=== PATIENT | male | born 1960 | race Caucasian/White ===

== ENCOUNTER 2020-12-17 15:11 | Inpatient (IN) | payer MEDICAID, SELFPAY ==
[2020-12-17 15:29] VITALS: BP 137/87; PULSE 18; RESP 91; TEMP 36.5; O2SAT 99; BMI 18.9
[2020-12-17] MEDS: Tamsulosin HCl 0.4 MG Capsule PO (17:29)
[2020-12-17] MEDS: Carbidopa/Levodopa 25/100 Tablet PO ×2 (17:31→18:37)
[2020-12-17 17:50] VITALS: O2SAT 99
[2020-12-17 20:35] VITALS: BP 130/70; PULSE 88; RESP 18; TEMP 36.5; O2SAT 100
[2020-12-17] MEDS: Senna/Docusate Sodium 1 Tablet PO (20:42)
[2020-12-17] MEDS: Pramipexole Di-HCl 1 MG Tablet 1.5 MG PO (20:43)
[2020-12-17] MEDS: rifAMPin 300 MG Capsule PO (20:43)
[2020-12-17] MEDS: Famotidine 20 MG Tablet PO (20:43)
[2020-12-17] MEDS: AMANTADINE HCL 50 MG/5ML 100 MG PO (20:44)
[2020-12-17] MEDS: MELATONIN 3 MG TABLET PO (20:44)
[2020-12-17] MEDS: Amitriptyline 100 MG Tablet 200 MG PO (20:45)
[2020-12-18] MEDS: Carbidopa/Levodopa 25/100 Tablet PO ×8 (04:16→18:22)
[2020-12-18] MEDS: 0.9% Saline Lock 10 ML Syringe IV ×2 (06:10→10:23)
[2020-12-18] MEDS: Enoxaparin 40 MG/0.4 ML Syringe SC (06:20)
[2020-12-18 06:58] LABS: Hematocrit 36.3 % (40-54); Hemoglobin 11.4 g/dL (13.0-16.5); Mean Corp Hgb Conc 31.4 g/dL (32-36); Mean Corpuscular Hgb 27.7 pg (27.0-32.0); Mean Corpuscular Volume 88.3 fL (80-94); Mean Platelet Vol. 8.6 fl (6.2-12.0); Platelet Count 363 K/mm3 (150-450); RBC Distribution Width SD 51.9 fl (35.1-43.9); Red Blood Count 4.11 M/mm3 (4.6-6.2); White Blood Count 5.7 K/mm3 (4.4-11.0)
[2020-12-18 07:27] LABS: ALB/GLOB Ratio 0.6 RATIO (0.9-2.4); AST(SGOT) 14 U/L (15-37); Alanine Aminotransfer ALT/SGPT 8 U/L (16-61); Albumin, Serum 2.9 g/dL (3.2-5.0); Alkaline Phosphatase 90 U/L (45-117); Anion Gap 5 (5-15); BUN 10 mg/dL (7-18); BUN/Creat Ratio 14.4 RATIO (10-20); Calcium,Total 9.3 mg/dL (8.5-10.1); Chloride 100 mmol/L (98-107); EST Glomerular Filtration Rate 124 mL/min (>60); Est Glom Filt Rate - Afr Amer 150 mL/min (>60); Estimated Creatinine Clearance 92.09 ml/min; Glucose 91 mg/dL (74-106); Magnesium 2.1 mg/dL (1.6-2.6); Potassium 3.9 mmol/L (3.5-5.1); Protein, Total 7.9 g/dL (6.4-8.2); Sodium Level 134 mmol/L (136-145)
[2020-12-18 07:35] VITALS: BP 140/80; PULSE 85; RESP 16; TEMP 36.3; O2SAT 97
[2020-12-18] MEDS: AMANTADINE HCL 50 MG/5ML 100 MG PO ×2 (08:08→17:18)
[2020-12-18] MEDS: Famotidine 20 MG Tablet PO ×2 (08:09→20:42)
[2020-12-18] MEDS: rifAMPin 300 MG Capsule PO ×2 (08:09→20:45)
[2020-12-18] MEDS: Ferrous Sulfate 325 MG Tablet PO (08:09)
[2020-12-18] MEDS: Cholecalciferol (VIT D3) 25 MCG TABLET (1,000 UNITS) PO (08:09)
[2020-12-18] MEDS: Senna/Docusate Sodium 1 Tablet PO ×2 (08:10→20:42)
[2020-12-18 09:17] VITALS: O2SAT 99
--- NOTE | 2020-12-18 12:17 | PCM.HP.STD ---
[facility] - General General Date of Admission: 12/17/20 Date of Service: 12/18/20 Chief Complaint: Debility secondary to Parkinson's disease and recent sepsis secondary to MRSA. [facility] Narrative SOFIE MILLER, is a 60 YO M with a PMH of Parkinson's disease, anxiety/depression, GERD, osteoarthritis, hx of placement of a deep brain stimulator and R total shoulder replacement who was transferred to [facility] on 10/03/20 from an OSH for severe sepsis with metabolic encephalopathy secondary to periprosthetic infection of the R shoulder. Apparently he was found down in his home and also had ARF and rhabdomyolysis. Cultures were + for MRSA. The hardware was removed and a antibiotic spacer was placed. Work-up at that admission also showed an abscess anterior to the Left SI joint and bilateral sacral insufficiency fractures. Aspiration of the abscess was attempted but, failed. DANO during that admission showed no significant valvular abnormalities and no vegetations. The EF was estimated at 71%. Bilateral lower extremity venous duplex on 823 was negative for acute deep or superficial venous thrombosis. Bilateral upper extremity venous duplex, also on 10/09/2020, showed acute superficial vein thrombosis noted in the left cephalic vein. There was no evidence of acute deep or superficial venous thrombosis in the veins of the right upper extremity. He was transferred to [facility] for IV antibiotics including Daptomycin and Ceftaroline. On 11/02/20 he was sent back to the ED at [facility] with a c/o increasing back pain. A CT scan of the lumbar spine with contrast demonstrated erosive destruction of the endplates of L3-4, L4-5 and L5-S1. Additionally there appeared to be erosion involving the left sacral ala and the left ilium adjacent to the SI joint. There was a focal fluid collection along the anterior left margin of L5 highly suggestive of a perivertebral abscess. He underwent irrigation/washout, excisional debridement of the L5 kamlesh-vertebral abscess and L3-S1 posterior segmental pedicle screw-ken instrumentation, pelvic instrumentation and bilateral S2A1 pelvic screws on 11/06/2020. He was transferred back to [facility]. At the time of presentation he was unable to walk. He was evaluated by PT/OT and a recommendation for acute inpt rehab was made. He lives by himself and is single. He was transferred to [facility] acute inpatient rehab on 12/17/20 for 3 hours of therapy daily to restore function at or near his level of function prior to sepsis. [facility] Medical History (Updated 12/20/20 @ 10:[address] Lia Hernandez DO) Abscess Anxiety Brain neurostimulator device in situ Depression GERD (gastroesophageal reflux disease) Osteoarthritis Parkinson's disease Home Medications acetaminophen 1,000 mg PO Q6H PRN 12/17/20 [History Last Taken Unknown] amantadine HCl 100 mg PO BID 12/17/20 [History Last Taken Unknown] amitriptyline 200 mg PO DAILY@1700 12/17/20 [History Last Taken Unknown] carbidopa-levodopa 0.5 tab PO 4-12XD 12/17/20 [History Last Taken Unknown] cholecalciferol (vitamin D3) [Vitamin D3] 25 mcg PO DAILY 12/17/20 [History Last Taken Unknown] daptomycin 500 mg IV DAILY@0600 12/17/20 [History Last Taken Unknown] enoxaparin [Lovenox] 40 mg SUBCUT DAILY@0600 12/17/20 [History Last Taken Unknown] famotidine 20 mg PO BID 12/17/20 [History Last Taken Unknown] ferrous sulfate 325 mg PO DAILY 12/17/20 [History Last Taken Unknown] hydrocodone-homatropine 1 tab PO Q4H PRN 12/17/20 [History Last Taken Unknown] ipratropium-albuterol [DuoNeb] 3 ml INHALATION Q4H PRN 12/17/20 [History Last Taken Unknown] melatonin 3 mg PO QHS 12/17/20 [History Last Taken Unknown] ondansetron [Zofran ODT] 4 mg PO Q8H PRN 12/17/20 [History Last Taken Unknown] polyethylene glycol 3350 [Miralax] 17 g PO DAILY 12/17/20 [History Last Taken Unknown] rifampin 300 mg PO BID 12/17/20 [History Last Taken Unknown] ropinirole 6 mg PO QHS 12/17/20 [History Last Taken Unknown] sennosides-docusate sodium [Senna-S] 1 tab-cap PO BID 12/17/20 [History Last Taken Unknown] tamsulosin 0.4 mg PO DAILY@1700 12/17/20 [History Last Taken Unknown] Allergy/AdvReac Type Severity Reaction Status Date / Time No Known Allergies Allergy Verified 12/17/20 16:18 Family History (Updated 12/17/20 @ 17:47 by Zoie Overton) Mother CVA (cerebral vascular accident) Sister Parkinson disease Father Heart failure Surgical History (Updated 12/18/20 @ 16:[address] 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 Lia Hernandez DO) household members: other details: lives alone in a private home with stairs to the basement and the bedroom. number of children: 0 current occupational status: disabled Smoking Status: Never smoker alcohol intake: current details: he drinks about 12 beers and a few shots a YEAR substance use type: does not use ROS Constitutional Constitutional: Reports body ache(s), change in weight, fatigue and weight loss Eyes Eyes: Reports systems reviewed and no addt'l complaints, except as documented ENT HEENT: Reports post nasal drip and rhinorrhea; Denies dizziness, dysphagia, hearing loss or sore throat Cardiovascular Cardiovascular: Denies abdominal pain, chest pain, chest pain at rest, chest pain with activity or clubbing Respiratory/Chest Respiratory/Chest: Reports dry cough; Denies excessive phlegm production, hoarseness, shortness of breath at rest or shortness of breath with exertion Gastrointestinal Gastrointestinal: Denies abdominal pain, anorexia, bloating, chewing difficulty, constipation, diarrhea or dyspepsia Genitourinary Genitourinary: Denies burning urination, change in urinary stream or dysuria Musculoskeletal Musculoskeletal: Reports arthralgias, back pain, difficulty walking and muscle weakness Integumentary Integumentary: Reports other Details: incisions from recent surgeries. ; Denies jaundice Neurologic Neurologic: Reports abnormal gait, tremor(s) and other Details: has Parkinson's ; Denies abnormal speech, behavior changes, confusion, convulsions or dizziness Psychiatric Psychiatric: Reports anxiety, depression and other Details: has been tearful recently. Has been in and out of hospital and LTAC for past 2+ months ; Denies auditory hallucinations, behavioral changes, cognitive impairment, confusion, hallucinations, suicidal thoughts or visual hallucinations Endocrine Endocrinology: Reports systems reviewed and no addt'l complaints, except as documented Hematologic/Lymphatic Hematologic/Lymphatic: Reports systems reviewed and no addt'l complaints, except as documented Allergic/Immunologic Allergic/Immunologic: Reports rhinitis Vital Signs Vital Signs Vital Signs: 12/17/20 15:29 12/17/20 17:50 12/17/20 20:35 Temperature 97.7 F L 97.7 F L Temperature Source Temporal Oral Pulse Rate 18 L 88 Pulse Strength Respiratory Rate 91 H 18 Respiratory Effort Respiratory Depth Respiratory Pattern Blood Pressure 137/87 H 130/70 H Blood Pressure Mean 103 90 Blood Pressure Source Monitor Monitor Blood Pressure Position Semi-Fowlers Blood Pressure Location Right Arm Pulse Ox 99 99 100 Oxygen Delivery Method Room Air Room Air Room Air 12/17/20 21:07 12/17/20 21:54 12/18/20 07:35 Temperature 97.4 F L Temperature Source Oral Pulse Rate 85 Pulse Strength Normal (2+) Respiratory Rate 16 Respiratory Effort Normal Non-Labored Respiratory Depth Normal Respiratory Pattern Normal Blood Pressure 140/80 H Blood Pressure Mean 100 Blood Pressure Source Monitor Blood Pressure Position Semi-Fowlers Blood Pressure Location Right Arm Pulse Ox 97 Oxygen Delivery Method Room Air Room Air 12/18/20 09:17 Temperature Temperature Source Pulse Rate Pulse Strength Respiratory Rate Respiratory Effort Respiratory Depth Respiratory Pattern Blood Pressure Blood Pressure Mean Blood Pressure Source Blood Pressure Position Blood Pressure Location Pulse Ox 99 Oxygen Delivery Method Room Air Weight Weight: 124 lb 12.506 oz Body Mass Index (BMI) 18.9 Physical Exam Const alert, oriented x3 and no apparent distress General Appearance: cooperative, well kempt, frail and well hydrated HEENT normocephalic HEENT Narrative: He has deformities of skull due to the implantation of neurostimulator for Parkinson's disease Head and Scalp: atraumatic; Negative for temporal artery tenderness Face and Sinus: face symmetric Eyes PERRL, EOMs intact bilaterally, conjunctivae normal and no scleral icterus Neck No nuchal rigidity, supple, no JVD and no carotid bruits General: normal visual inspection and trachea midline Chest Chest: symmetrical chest wall rise Resp Resp Narrative: Decreased resp effort but, the lungs are CTA without wheezes, rhonchi or rales. Effort and Inspection: able to speak in complete sentences Cardio regular rate, regular rhythm, S1 normal heart sound, S2 normal heart sound, no murmurs, no rub and no gallops Cardio Narrative: No ectopy GI normal to inspection, nondistended, normoactive bowel sounds, soft to palpation and non-tender Extremity normal capillary refill, no clubbing, cyanosis or edema, no calf tenderness and no pedal edema Skin Rashes: no rashes Hair: general thinning Neuro oriented x3, CN's II-XII intact bilaterally, no focal motor deficits and no sensory deficits noted Neuro Narrative: generalized weakness. He has tremors and some rigidity due to Parkinson's disease. Speech: Negative for expressive aphasia or receptive aphasia Psych mental status grossly normal, thought process normal, cooperative, speech normal, denies hallucinations, denies homicidal ideation and denies suicidal ideation Appearance: grossly normal Attitude: calm Activity / Motor Behavior: appropriate eye contact; Negative for psychomotor agitation or psychomotor slowing Mood & Affect: depressed and tearful Attention / Concentration: attention grossly intact Memory / Cognition: memory grossly intact Results Lab / Micro Data Result Diagrams: 12/18/20 06:43 12/18/20 06:43 Labs: Laboratory Results - last 24 hr 12/18/20 06:43: WBC 5.7, RBC 4.11 L, Hgb 11.4 L, Hct 36.3 L, MCV 88.3, MCH 27.7, MCHC 31.4 L, RDW Std Deviation 51.9 H, RDW Coeff of [place] 16.0 H, Plt Count 363, MPV 8.6 12/18/20 06:43: Sodium 134 L, Potassium 3.9, Chloride 100, Carbon Dioxide 29.0, Anion Gap 5, BUN 10, Creatinine 0.70, Estim Creat Clear Calc 92.09, Est GFR (MDRD) Af Amer 150, Est GFR (MDRD) Non-Af 124, BUN/Creatinine Ratio 14.4, Glucose 91, Calcium 9.3, Phosphorus 4.0, Magnesium 2.1, Total Bilirubin 0.30, AST 14 L, ALT 8 L, Alkaline Phosphatase 90, Total Protein 7.9, Albumin 2.9 L, Globulin 5.0 H, Albumin/Globulin Ratio 0.6 L Assessment & Plan Assessment/Plan (1) Physical debility: (2) Severe sepsis: (3) Osteomyelitis: (4) Abscess: (5) Discitis: (6) Parkinson's disease: (7) Depression: (8) Anxiety: (9) BPH (benign prostatic hyperplasia): (10) GERD (gastroesophageal reflux disease): (11) Sacral insufficiency fracture: (12) Anemia: (13) Hyponatremia: (14) Brain neurostimulator device in situ: (15) Restless legs: (16) 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 He is sleeping well at night. He is already thin and frail in appearance so will avoid Wellbutrin. Consider Remeron but, would like to observe for a few days prior to initiating a new drug. GI prophylaxis with Famotidine DVT prophylaxis with Enoxaparin Follow up with ID, PCP, neurology, neurosurgery following DC from IP Rehab He seems to have post nasal drip and will try Atrovent nasal spray for cough. He will also need an MBS. If he has any significant post void residuals will need to consider decreasing the dose of the Elavil. Charges/Coding Visit Charges Inpatient E&M: 77199 Init Hosp L3
--- NOTE | 2020-12-18 16:47 | REHABEVAL_ITS ---
Admission Information Primary Diagnosis:: Debility secondary to recent prolonged hospitalizations for MRSA sepsis with osteomyelitis, discitis, infected prosthetic joint, pelvic abscess, paravertebral abscess at L5 and surgeries. Pt also has Parkinson's and generalized weakness. Status Changes from Prescreening?: No changes Identified Actual Problem List:: Infection, Skin Intergrity, Pain, ALteration in Cmfrt, Depression, Alteration in Sleep, Alteration in Nutrition, Mobility Impaired, Self Care Deficit and Alteration-Leisure Activ. Potential Problem List:: DVT, Bleeding, Infection, UTI, Aspiration, Falls, Skin Integrity and Depression Risk of Complications DVT: LMWH and AQUILES Hose Bleeding: Monitor Lab Values, Nursing to Teach Precautions for anti-coagulation therapy., Wound, if applicable, to be assessed every shift. and Stroke patients assessed for lethargy or change in status. Infection: Clinical Staff to Monitor for S/S of infection: and S/S of infection include fever, redness, warmth, etc. Urinary Tract Infection: Monitor for frequency, burning, discomfort, or incontinence. and Nursing will obtain urine sample for urinalysis and C&S when ordered. Aspiration: Clinical staff will monitor for coughing, drooling, congestion., Speech will evaluate swallowing and dsyphasia. and Nursing will monitor patient swallowing during meals. Falls: Patient will be evaluated for Fall Precautions and Patient will be placed on Fall Precautions as indicated per protocol. Skin Breakdown: Nursing will assess skin daily using assessment tool. and Nursing will place on Skin Breakdown Precautions as indicated. Pain: Clinical staff will assess patient's pain level per protocol., Medications will be given, if needed, and the pain level reassessed. and Other methods: Massage, distraction, decrease stimulus, etc. used PRN. Plan of Care Patient requires physician specializing in physical medicine and rehab oversight to provide close medical supervision of rehab issues including: Pain Management, Sleep Problems, Bowel and Bladder, Medical and co-morbidity Management, DVT prophylaxis, Rehabilitation Leadership and Coordination of treatment team Patient needs Physical Therapy: For a minimum of 1 hour and At least 5 out of 7 days Patient needs Physical Therapy to improve:: Mobility, Strengthening, Transfers, Stretching, ROM, Endurance, Stairs, Gait and Balance Patient needs Occupational Therapy: For a minimum of 1 hour and At least 5 out of 7 days Patient needs Occupational Therapy to improve ADL's incl.: Eating, Grooming, Bathing, Dressing, Toileting, Toilet transfers, Community Reintegration, Higher functioning activities, Household tasks, Adaptive Equipment, Splinting and Other activities as determined Patient requires 24/7 Rehabilitation Nursing for: Pain Issues, Identifying and preventing risk factors, Monitoring and reporting current medical conditions, Assisting with ambulation, transfer, and all ADL's, Teaching patients about disease process and medications, Family teaching, Providing safe environment, Bowel and Bladder Issues, Skin integrity and Medication Management Patient needs Professor Of Floriculture/ Case Management for: Discharge Planning, Arranging Home Equipment or Services and Family Interventions Patient needs Dietary and Nutrition Services for: Adequate Nutrition, Nutritional Supplements and Nutritional Education Goals Patient will remain: free from falls and or injury at time of discharge. Patient will perform bed mobility at: MOD I level of assist. Patient will complete transfers from bed to chair at: MOD I level of assist. Patient will ambulate: with LRD and - (1000 feet with least restrictive device at standby assist on various surfaces) Patient will complete upper body dressing at: MOD I level of assist. Patient will complete lower body dressing at: MOD I level of assist. Patient will complete toileting at: MOD I level of assist. Patient will perform bathing at: MOD I level of assist. Patient will complete grooming at: MOD I level of assist. Patient will complete home management skills at: MOD I level of assist. Patient will achieve: - (1 curb step and 1+3 steps with no rails to simulate the entrance to his home. ) Patient will have pain level of: of 3 or less Patient's skin will: remain intact Patient will receive: adequate nutrition. Discharge Planning Pt Prognosis for Sig. Practical Improv. w/in Reasonable Time: Good Anticipated D/C Destination: Home Was Preadmission Assessment Accurate?: Yes
--- NOTE | 2020-12-18 16:52 | CHAPLAIN ---
Type of Pastoral Visit _x__ Initial Visit ___ Follow-up Visit ___ On-call Visit ___ General Patient Visit ___ Spiritual Assessment ___ Family Conference ___ Bereavement ___ Rapid Response ___ Code Blue ___ Other (describe below) Pastoral Care Referral From _x__ Patient ___ Family ___ Nurse ___ Physician ___ Production Ski Repairer ___ Hearing Officer ___ Other (describe below) Sacrament/Intervention _x__ Active listening ___ Anointing ___ Rastafari ___ Bereavement ___ Communion ___ Belkis exploration ___ _x__ Life review _x__ Prayer ___ Reconciliation ___ Sacrament of Sick _x__ Supportive presence ___ Wedding ___ Other (describe below) Pastoral Comments developing rapport as patient shows some interest in follow up; sister is with him in room; both give some background history of health and family; pt has long history with Parkinson's disease too; pt was raised in anglican but non attending at this time of life
[2020-12-18] MEDS: Tamsulosin HCl 0.4 MG Capsule PO (17:18)
[2020-12-18 20:09] VITALS: BP 135/85; PULSE 98; RESP 16; TEMP 36.6; O2SAT 98
[2020-12-18] MEDS: Pramipexole Di-HCl 1 MG Tablet 1.5 MG PO (20:42)
[2020-12-18] MEDS: MELATONIN 3 MG TABLET PO (20:42)
[2020-12-18] MEDS: Amitriptyline 100 MG Tablet 200 MG PO (20:42)
[2020-12-18] MEDS: Ipratropium Bromide 0.06% NASAL SPRAY 2 SPRAY NASAL (20:43)
[2020-12-19] MEDS: Carbidopa/Levodopa 25/100 Tablet PO ×8 (04:07→18:10)
[2020-12-19] MEDS: Acetaminophen 500 MG Tablet 1000 MG PO ×2 (04:12→10:17)
[2020-12-19] MEDS: Enoxaparin 40 MG/0.4 ML Syringe SC (06:03)
[2020-12-19] MEDS: AMANTADINE HCL 50 MG/5ML 100 MG PO ×2 (06:04→15:20)
[2020-12-19 07:30] VITALS: BP 128/77; PULSE 84; RESP 16; TEMP 36.8; O2SAT 98
[2020-12-19] MEDS: Ferrous Sulfate 325 MG Tablet PO (08:03)
[2020-12-19] MEDS: Famotidine 20 MG Tablet PO ×2 (08:04→20:16)
[2020-12-19] MEDS: Cholecalciferol (VIT D3) 25 MCG TABLET (1,000 UNITS) PO (08:04)
[2020-12-19] MEDS: Senna/Docusate Sodium 1 Tablet PO ×2 (08:04→20:15)
[2020-12-19] MEDS: Ipratropium Bromide 0.06% NASAL SPRAY 2 SPRAY NASAL ×2 (08:04→20:12)
[2020-12-19] MEDS: rifAMPin 300 MG Capsule PO (08:04)
--- NOTE | 2020-12-19 12:10 | NURSING ---
1200 [facility] not in med box, [facility]
[2020-12-19 13:55] VITALS: O2SAT 96
--- NOTE | 2020-12-19 14:15 | NURSING ---
1200 amantadine dose not yet sent from pharmacy, called pharmacy requesting missing dose to be sent up.
--- NOTE | 2020-12-19 15:31 | CASEMGMT ---
Social Work Met with patient for initial assessment. Discussed code status. Pt confirmed DNR-CCA, no intubation. Explained Shun RAMIREZ insurance with [employer] 12/22 and continued stay is not guaranteed. The goal is for pt to return home at [facility]. pt was completely independent prior, able to do steps. Sister to attend Team meetings. Received call from Shun Fischer CM, , whom inquired about DC plan and barriers. Provided that information. SW to continue to follow. Joya Patino, DIRECTOR SOCIAL NATURAL GAS TREATING UNIT OPERATOR
[2020-12-19] MEDS: Tamsulosin HCl 0.4 MG Capsule PO (18:09)
[2020-12-19] MEDS: MELATONIN 3 MG TABLET PO (20:13)
[2020-12-19] MEDS: Pramipexole Di-HCl 1 MG Tablet 1.5 MG PO (20:13)
[2020-12-19] MEDS: Amitriptyline 100 MG Tablet 200 MG PO (20:13)
[2020-12-19 21:50] VITALS: BP 113/69; PULSE 84; RESP 16; TEMP 36.8; O2SAT 98
[2020-12-20] MEDS: Carbidopa/Levodopa 25/100 Tablet PO ×8 (04:47→17:54)
[2020-12-20] MEDS: Enoxaparin 40 MG/0.4 ML Syringe SC (06:06)
[2020-12-20] MEDS: AMANTADINE HCL 50 MG/5ML 100 MG PO ×2 (06:08→12:10)
[2020-12-20 07:29] VITALS: BP 102/78; PULSE 97; RESP 18; TEMP 36.4; O2SAT 97
[2020-12-20] MEDS: Ipratropium Bromide 0.06% NASAL SPRAY 2 SPRAY NASAL ×3 (08:28→19:53)
[2020-12-20] MEDS: Ferrous Sulfate 325 MG Tablet PO (08:29)
[2020-12-20] MEDS: Cholecalciferol (VIT D3) 25 MCG TABLET (1,000 UNITS) PO (08:29)
[2020-12-20] MEDS: Senna/Docusate Sodium 1 Tablet PO ×2 (08:29→19:54)
[2020-12-20] MEDS: Famotidine 20 MG Tablet PO ×2 (08:29→19:54)
--- NOTE | 2020-12-20 10:53 | PN_ITS ---
Progress Note Afebrile VSS-blood pressure is lower than normal today at 102/78. He denies lightheadedness. Maintaining appropriate oxygen saturation on RA Oral intake is erratic. Yesterday intake was listed as only 480 on 12/19/20 Discussed with nursing - no problems that need addressed Reviewed the PT/OT notes Medication list reviewed. Eder tells me that the chronic coughing is a little better with the Atrovent however he still coughs occasionally. Not always associated with eating though. He denies chest pain, shortness of breath, lightheadedness, na usea/vomiting/abdominal pain, dysuria, ankle swelling, calf pain. Physical Exam Const alert, oriented x3 and no apparent distress General Appearance: cooperative HEENT HEENT Narrative: MM are moist and their are no buccal lesions or exudate. Eyes PERRL, EOMs intact bilaterally, conjunctivae normal and no scleral icterus Neck no lymphadenopathy General: trachea midline Resp Resp Narrative: Diminished air entry but CTA. Not tachypneic and no conversational dyspnea. Cardio regular rate, regular rhythm, no murmurs and no gallops GI normal to inspection, nondistended, normoactive bowel sounds, soft to palpation and non-tender Extremity no calf tenderness and no pedal edema Skin Rashes: no rashes Wound Narrative: incisions are clean, dry and intact without erythema or DC. Psych mental status grossly normal, thought process normal and cooperative Psych Narrative: not tearful today. Mood seems to be less depressed. He is making good eye contact and he is appropriate. 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 Encouraged him to increase his water intake. 2. continue to observe for depression and continue the Elavil. Will talk with his sister tomorrow on yaneth and Eder and discuss depression and determine if this is just situational and will resolve with improvement in ADL's/ambulation and return home. If I need to start another antidepressant will likely chose Remeron. 3. Increase Atrovent nasal spray to 3 times daily 4. Consult speech therapy for swallowing-Will need an MBS. Visit Charges Inpatient E&M: 82338 Subs Hosp L2
[2020-12-20] MEDS: Smz/Tmp Ds Tablet 2 TABLET PO (16:46)
[2020-12-20] MEDS: Tamsulosin HCl 0.4 MG Capsule PO (17:54)
[2020-12-20 19:30] VITALS: BP 125/77; PULSE 84; RESP 16; TEMP 36.3; O2SAT 100
[2020-12-20] MEDS: Amitriptyline 100 MG Tablet 200 MG PO (19:53)
[2020-12-20] MEDS: MELATONIN 3 MG TABLET PO (19:54)
[2020-12-20] MEDS: Pramipexole Di-HCl 1 MG Tablet 1.5 MG PO (21:56)
[2020-12-21] MEDS: Carbidopa/Levodopa 25/100 Tablet PO ×8 (04:04→18:12)
[2020-12-21] MEDS: AMANTADINE HCL 50 MG/5ML 100 MG PO ×2 (06:40→12:02)
[2020-12-21] MEDS: Enoxaparin 40 MG/0.4 ML Syringe SC (06:41)
[2020-12-21] MEDS: Ipratropium Bromide 0.06% NASAL SPRAY 2 SPRAY NASAL ×3 (06:41→20:56)
[2020-12-21 07:40] VITALS: BP 139/77; PULSE 85; RESP 16; TEMP 36.6; O2SAT 97
[2020-12-21] MEDS: Famotidine 20 MG Tablet PO ×2 (08:00→20:55)
[2020-12-21] MEDS: Senna/Docusate Sodium 1 Tablet PO ×3 (08:01→20:54)
[2020-12-21] MEDS: Ferrous Sulfate 325 MG Tablet PO (08:01)
[2020-12-21] MEDS: Smz/Tmp Ds Tablet 2 TABLET PO ×2 (08:01→16:19)
[2020-12-21] MEDS: Cholecalciferol (VIT D3) 25 MCG TABLET (1,000 UNITS) PO (08:01)
[2020-12-21] MEDS: Tamsulosin HCl 0.4 MG Capsule PO (16:19)
--- NOTE | 2020-12-21 16:29 | CASEMGMT ---
Social Work IDT met with patient and sister for Team meeting. Discussed patient's progress in therapy and nursing. Explained Shun ASHLEY insurance with [employer] 12/22 and continued stay is not guaranteed. The goal is for pt to return home alone. However, it is [place] old [place] two story house with many steep flights of steps. The sister is concerned with the current safety if he were to DC soon. ST is also following and recommending a MBS to better assess and intervene. SW to continue to follow. Will ReTeam next week. Joya Patino, FRUIT SPRAYER BOTTLE MACHINE OPERATOR
--- NOTE | 2020-12-21 16:48 | PCM.PN.BLA ---
Progress Note Eder was seen on team rounds today. His Sister Anna was present in the room. Afebrile VSS Maintaining appropriate oxygen saturation on RA Oral intake is good. His appetite starting in October became decreased due to depression and he is eating better but, still not where is should be. Discussed with nursing - no problems that need addressed Reviewed the PT/OT/ST notes - he will have a MBS in the AM Medication list reviewed. Will increase the Famotidine to 20 mg BID. He tells me that when he eats too many chocolate cupcakes from [employer] he gets reflux. He has only been taking the Famotidine once a day and this reflux is likely contributing to the chronic cough although it has improved significantly with Atrovent nasal spray. He cleared his throat only once a day while I was talking to him. Denies shortness of breath, chest pain, palpitations, lightheadedness, dysuria, nausea/vomiting/abdominal pain, calf pain. He tells me that he has been on Elavil for 13 years and the dose has been gradually increased. He appetite and mood are somewhat better with recent increase in the Elavil dose but, he is not back to his baseline. Denies any significant anxiety. He is looking forward to going home. He has many stairs at his house but, he tells me that he is not ready to move into a place all on 1 floor. He has lived in the same house for 58 years and he wants to stay there. He will have to be able to do 2 flights of stairs prior to DC home. Tells me that he is sleeping pretty well. He is no longer tearful but, when he was talking about being depressed and everything that happened to him over the past few months he did tear up a little. He does not have help at home however, he was riding his bike to [employer] to get groceries prior to recent hospitalizations and he was able to mow his grass and work in the yard. He was independent with all ADL's and would like to be able to continue living alone. Physical Exam Const alert, oriented x3 and no apparent distress Constitutional Narrative: thin. General Appearance: cooperative, comfortable and well kempt Nutritional Appearance: underweight HEENT HEENT Narrative: The right eye appears to be mildly exophthalmic to me and deviates laterally mildly at times. He has not noticed this. He denies any visual problems Eyes EOMs intact bilaterally, conjunctivae normal and no scleral icterus Chest Chest: symmetrical chest wall rise Resp normal respiratory effort, normal air movement, No no use of accessory muscles and clear to auscultation bilaterally Effort and Inspection: able to speak in complete sentences Cardio regular rate, regular rhythm and no gallops GI normal to inspection, nondistended, normoactive bowel sounds, soft to palpation and non-tender Extremity no calf tenderness and no pedal edema Skin Skin Narrative: The incision over the LS spine is intact with no erythema and no increased warmth to touch. No DC. The incision of the R shoulder due to explantation of the joint is also intact and has no erythema, DC or increased warmth to touch. 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 If the MBS tomorrow is negative for signs of aspiration consider changing the Famotidine to a PPI to see if reflux improves or increase the Famotidine to 40 mg BID 2. Add Remeron at HS 15 mg 3. Recheck the BMP, ESR, CRP and CBC with diff on Friday. 4. Continue therapy. I think it will be important for Eder's mental health to return to his home and he has been making good progress but, he is yet strong enough and does not yet have the endurance he will need to go home. 5. Will need HH at DC Visit Charges Inpatient E&M: 86932 Subs Hosp L2
[2020-12-21 19:40] VITALS: BP 142/88; PULSE 94; RESP 14; TEMP 36.8; O2SAT 97
[2020-12-21] MEDS: Mirtazapine 15 MG Tablet PO (20:55)
[2020-12-21] MEDS: Pramipexole Di-HCl 1 MG Tablet 1.5 MG PO (20:55)
[2020-12-21] MEDS: MELATONIN 3 MG TABLET PO (20:56)
[2020-12-21] MEDS: Amitriptyline 100 MG Tablet 200 MG PO (20:57)
[2020-12-22] MEDS: Carbidopa/Levodopa 25/100 Tablet PO ×8 (03:57→18:02)
[2020-12-22] MEDS: Enoxaparin 40 MG/0.4 ML Syringe SC (05:19)
[2020-12-22] MEDS: Ipratropium Bromide 0.06% NASAL SPRAY 2 SPRAY NASAL ×3 (05:19→21:18)
[2020-12-22] MEDS: AMANTADINE HCL 50 MG/5ML 100 MG PO ×2 (05:20→12:18)
[2020-12-22 07:35] VITALS: BP 114/71; PULSE 87; RESP 12; TEMP 36.7; O2SAT 96
[2020-12-22] MEDS: Famotidine 20 MG Tablet PO ×2 (08:07→21:18)
[2020-12-22] MEDS: Smz/Tmp Ds Tablet 2 TABLET PO ×2 (08:07→16:10)
[2020-12-22] MEDS: Polyethylene Glycol 3350 17 GM PACKET PO (08:07)
[2020-12-22] MEDS: Ferrous Sulfate 325 MG Tablet PO (08:07)
[2020-12-22] MEDS: Cholecalciferol (VIT D3) 25 MCG TABLET (1,000 UNITS) PO (08:07)
--- NOTE | 2020-12-22 13:46 | CASEMGMT ---
Social Work Provided home delivered meal resources to pt, per request. Joya Patino, ANNEALING OVEN OPERATOR SECURITY INSTALLATION SALES TECHNICIAN
--- NOTE | 2020-12-22 15:39 | ST.MBS ---
Modified Barium Swallow - Patient Information Study Date: 12/22/20 Study Time: 14:00 Direct Billable Minutes: 120 Total Minutes procedure & reportin Diagnosis: Dysphagia R13.10 Referring Physician: Lia Hernandez Reason for Referral: Pt. was referred for an objective videofloroscopy study of the swallow to rule out aspiration and determine LRD Medical History: SOFIE MILLER, is a 60 YO M with a PMH of Parkinson's disease, anxiety/depression, GERD, osteoarthritis, hx of placement of a deep brain stimulator and R total shoulder replacement who was transferred to [facility] on 10/03/20 from an OSH for severe sepsis with metabolic encephalopathy secondary to periprosthetic infection of the R shoulder. Apparently he was found down in his home and also had ARF and rhabdomyolysis. Cultures were + for MRSA. The hardware was removed and a antibiotic spacer was placed. Work-up at that admission also showed an abscess anterior to the Left SI joint and bilateral sacral insufficiency fractures. Aspiration of the abscess was attempted but, failed. DANO during that admission showed no significant valvular abnormalities and no vegetations. The EF was estimated at 71%. Bilateral lower extremity venous duplex on 823 was negative for acute deep or superficial venous thrombosis. Bilateral upper extremity venous duplex, also on 10/09/2020, showed acute superficial vein thrombosis noted in the left cephalic vein. There was no evidence of acute deep or superficial venous thrombosis in the veins of the right upper extremity. He was transferred to [facility] for IV antibiotics including Daptomycin and Ceftaroline. On 11/02/20 he was sent back to the ED at [facility] with a c/o increasing back pain. A CT scan of the lumbar spine with contrast demonstrated erosive destruction of the endplates of L3-4, L4-5 and L5-S1. Additionally there appeared to be erosion involving the left sacral ala and the left ilium adjacent to the SI joint. There was a focal fluid collection along the anterior left margin of L5 highly suggestive of a perivertebral abscess. He underwent irrigation/washout, excisional debridement of the L5 kamlesh-vertebral abscess and L3-S1 posterior segmental pedicle screw-ken instrumentation, pelvic instrumentation and bilateral S2A1 pelvic screws on 11/06/2020. He was transferred back to [facility]. At the time of presentation he was unable to walk. He was evaluated by PT/OT and a recommendation for acute inpt rehab was made. He lives by himself and is single. He was transferred to [facility] acute inpatient rehab on 12/17/20 for 3 hours of therapy daily to restore function at or near his level of function prior to sepsis. Current Diet Ordered: regular w/ thin Dentition: WNL - Penetration-Aspiration Scale Penetration-Aspiration Scale: OBJECTIVE ASSESSMENT OF SWALLOW FUNCTION (QUANTITATIVE ? PER TRIAL): PENETRATION / ASPIRATION SCALE (HAQUE): 1 = does not enter airway 2 = enters airway/above vocal folds/ejected 3 = enters airway/above vocal folds/not ejected 4 = enters airway/contacts vocal folds/ejected 5 = enters airway/contacts vocal folds/not ejected 6 = enters airway/below vocal folds/ejected 7 = enters airway/below vocal folds/not ejected despite effort 8 = enters airway/below vocal folds/no effort - Penetration-Aspiration Scale Score Thin Liquid via teaspoon Result: 1= does not enter airway Thin Liquid via teaspoon Trial 2 Result: 1= does not enter airway Thin Liquid via small single sip from cup Result: 1= does not enter airway Thin Liquid via sequential sips from cup Result: 2= enter airway/above vocal folds/ejected Thin Liquid via single sip from straw Result: 2= enter airway/above vocal folds/ejected Thin Liquid via sequential sips from straw Result: 2= enter airway/above vocal folds/ejected [place] Thick Liquid via small single sip from cup Result: 1= does not enter airway [place] Thick Liquid via small single sip from cup Trial 2 Result: 1= does not enter airway [place] Thick Liquid via small single sip from cup Result: 1= does not enter airway Honey Thick Liquid via small single sip from cup Trial 2 Result: 1= does not enter airway Pudding via teaspoon Result: 1= does not enter airway Pudding via teaspoon Trial 2 Result: 1= does not enter airway Cookie via teaspoon Result: 1= does not enter airway Thin Liquid via small single sip from cup Trial 2 Result: 2= enter airway/above vocal folds/ejected - Oral Phase Labial Seal: No Labial Escape Tongue Control During Bolus Hold: Cohesive bolus between tongue to palatal seal Bolus Preparation/Mastication: Slow prolonged chewing/mashing with complete recollection Bolus Transport/Lingual Motion: Slowed tongue motion Oral Residue: Residue collection on oral structures - Pharyngeal Phase Initiation of Pharyngeal Swallow: Bolus head at posterior angle of ramus at first hyoid excursion Soft Palate Elevation: Trace column of contrast/air between soft palate and pharyngeal wall Laryngeal Elevation: Partial superior movement thyroid cart/partial apprx aryt-epig petiole Anterior Hyoid Excursion: Partial anterior movement Epiglottic Movement: Partial inversion Laryngeal Vestibule Closure at Height of Swallow: Incomplete; narrow column of air/contrast in laryngeal vestibule Pharyngeal Stripping Wave: Present - diminished Pharyngoesophageal Segment Opening: Parital distension and partial duration; parital obstruction of flow Tongue Base Retraction: Narrow column of contrast between tongue base & post. pharyngeal wall Pharyngeal Residue: Collection of residue within or on pharyngeal structures - Esophageal Phase Esophageal Clearance: Esophageal retention - slow/delayed clearance - Treatment Strategies Effects of treatment strategies attemped:: Given verbal prompts, pt. trialed safe swallow strategies of hard swallow, liquid wash and re-swallow in attempted to clear pharyngeal residue with minimal success. - Diagnosis/Impression Diagnosis: oropharyngeal dysphagia R13.12 Impression: Pt. presents with oral phase dysphagia characterized by slow mastication, poor bolus formation and decreased anterior-posterior oral transit resulting in oral residues. Pt. presents with pharyngeal phase dysphagia characterized by decreased laryngeal elevation, decreased anterior hyoid excursion, decreased epiglottic deflection and decreased tongue based retraction resulting in pharyngeal residues, decreased closure of the laryngeal vestibule and mild trace penetration with thin liquids via sequential and straw sips. Pt. was unable to clear the residuals in the valleculae and along pharyngeal wall. No aspiration was observed during the study and penetration was ejected. - Recommendations Diet: Regular Textures, Thin Liquids Compensatory Strategies: Small Bites, Small Sips, No Straws, Multiple Swallows, Alternate bites/solids and sips/liquids, Sitting upright, Remain sitting upright for 30 minutes after PO intake Supervision: Distant Supervision Recommend Repeat Modified Barium Swallow: No Need for Skilled Speech Therapy Services: Yes - ST tx to address dysphagia Comment: Further ST tx is warranted to train safe swallow strategies, strengthen oral and pharyngeal structures and to continue to monitor tolerance of a regular diet. Education Completed: 1. Described result of evaluation., 2. Pt understands evaluation & agrees with goals and treatment plan. - Status Active ST Patient: Active - Contact Information [facility]:: [facility] [address] [place] [address] Nuris Reynolds M.A., CCC-[employer] [place] [email or web address] 12/22/20 15:53
[2020-12-22] MEDS: Tamsulosin HCl 0.4 MG Capsule PO (16:10)
[2020-12-22] MEDS: Magnesium Hydroxide 30 ML UDC PO (18:02)
[2020-12-22 19:25] VITALS: BP 114/58; PULSE 97; RESP 16; TEMP 36.6; O2SAT 98
[2020-12-22] MEDS: Amitriptyline 100 MG Tablet 200 MG PO (19:54)
[2020-12-22] MEDS: Mirtazapine 15 MG Tablet PO (21:18)
[2020-12-22] MEDS: Senna/Docusate Sodium 1 Tablet PO (21:18)
[2020-12-22] MEDS: MELATONIN 3 MG TABLET PO (21:18)
[2020-12-22] MEDS: Pramipexole Di-HCl 1 MG Tablet 1.5 MG PO (21:19)
[2020-12-23] MEDS: Bisacodyl 10 MG Suppository RC (03:34)
[2020-12-23] MEDS: Carbidopa/Levodopa 25/100 Tablet PO ×8 (03:35→18:00)
[2020-12-23] MEDS: AMANTADINE HCL 50 MG/5ML 100 MG PO ×2 (05:48→12:12)
[2020-12-23] MEDS: Enoxaparin 40 MG/0.4 ML Syringe SC (05:48)
[2020-12-23] MEDS: Ipratropium Bromide 0.06% NASAL SPRAY 2 SPRAY NASAL ×3 (05:49→20:43)
[2020-12-23 07:41] VITALS: BP 121/72; PULSE 93; RESP 20; TEMP 36.6; O2SAT 97
[2020-12-23] MEDS: Smz/Tmp Ds Tablet 2 TABLET PO ×2 (08:36→17:08)
[2020-12-23] MEDS: Senna/Docusate Sodium 1 Tablet PO ×2 (08:37→20:45)
[2020-12-23] MEDS: Ferrous Sulfate 325 MG Tablet PO (08:38)
[2020-12-23] MEDS: Polyethylene Glycol 3350 17 GM PACKET PO (08:38)
[2020-12-23] MEDS: Cholecalciferol (VIT D3) 25 MCG TABLET (1,000 UNITS) PO (08:38)
[2020-12-23] MEDS: Famotidine 20 MG Tablet PO ×2 (08:38→20:45)
[2020-12-23] MEDS: Tamsulosin HCl 0.4 MG Capsule PO (17:08)
[2020-12-23 19:30] VITALS: BP 102/60; PULSE 88; RESP 18; TEMP 36.6; O2SAT 96
[2020-12-23] MEDS: Amitriptyline 100 MG Tablet 200 MG PO (20:43)
[2020-12-23] MEDS: Pramipexole Di-HCl 1 MG Tablet 1.5 MG PO (20:44)
[2020-12-23] MEDS: MELATONIN 3 MG TABLET PO (20:44)
[2020-12-23] MEDS: Mirtazapine 15 MG Tablet PO (20:45)
[2020-12-24] MEDS: Carbidopa/Levodopa 25/100 Tablet PO ×8 (04:44→17:57)
[2020-12-24] MEDS: Ipratropium Bromide 0.06% NASAL SPRAY 2 SPRAY NASAL ×3 (06:46→21:23)
[2020-12-24] MEDS: AMANTADINE HCL 50 MG/5ML 100 MG PO ×2 (06:46→12:18)
[2020-12-24] MEDS: Enoxaparin 40 MG/0.4 ML Syringe SC (06:46)
[2020-12-24] MEDS: Smz/Tmp Ds Tablet 2 TABLET PO ×2 (08:22→17:00)
[2020-12-24 08:23] VITALS: BP 118/73; PULSE 86; RESP 18; TEMP 36.6; O2SAT 96
[2020-12-24] MEDS: Polyethylene Glycol 3350 17 GM PACKET PO (08:23)
[2020-12-24] MEDS: Ferrous Sulfate 325 MG Tablet PO (08:23)
[2020-12-24] MEDS: Famotidine 20 MG Tablet PO ×2 (08:24→21:24)
[2020-12-24] MEDS: Cholecalciferol (VIT D3) 25 MCG TABLET (1,000 UNITS) PO (08:24)
[2020-12-24] MEDS: Senna/Docusate Sodium 1 Tablet PO ×2 (08:24→21:25)
--- NOTE | 2020-12-24 11:13 | NURSING ---
after givning pt meds this am had coughing fit for few minutes. pt took meds all at once. reported that the liquid amantidine making throat scratchy and thats why coughing appears that pt to have swallow study on friday per sp. lungs clear. will monitor
[2020-12-24] MEDS: Tamsulosin HCl 0.4 MG Capsule PO (17:00)
[2020-12-24 19:29] VITALS: BP 104/66; PULSE 91; RESP 14; TEMP 36.4; O2SAT 98
[2020-12-24] MEDS: Amitriptyline 100 MG Tablet 200 MG PO (20:06)
[2020-12-24] MEDS: Pramipexole Di-HCl 1 MG Tablet 1.5 MG PO (21:24)
[2020-12-24] MEDS: MELATONIN 3 MG TABLET PO (21:24)
[2020-12-24] MEDS: Mirtazapine 15 MG Tablet PO (21:25)
[2020-12-25] MEDS: Carbidopa/Levodopa 25/100 Tablet PO ×8 (03:36→18:38)
[2020-12-25] MEDS: Ipratropium Bromide 0.06% NASAL SPRAY 2 SPRAY NASAL ×3 (05:23→20:16)
[2020-12-25] MEDS: Enoxaparin 40 MG/0.4 ML Syringe SC (05:23)
[2020-12-25] MEDS: Amantadine 100 MG Capsule PO ×2 (05:23→12:17)
[2020-12-25 06:02] LABS: Erythrocyte Sedimentation Rate 44 mm/hr (0-20)
[2020-12-25 06:04] LABS: Absolute Lymphocyte Count 1.18 X10^3/uL (0.83-4.51); Absolute Neutrophil Count 3.5 X10^3/uL (2.0-7.7); Basophil# 0.07 X10^3/uL; Basophil% 1.2 % (0-1); Eosinophil# 0.37 X10^3/uL; Eosinophils% 6.4 % (0-5); Hematocrit 37.3 % (40-54); Hemoglobin 11.6 g/dL (13.0-16.5); Lymphocyte # 1.18 X10^3/ul (0.83-4.51); Lymphocyte % 20.3 % (19-41); Mean Corp Hgb Conc 31.1 g/dL (32-36); Mean Corpuscular Hgb 27.4 pg (27.0-32.0); Mean Platelet Vol. 8.7 fl (6.2-12.0); Monocyte# 0.63 X10^3/uL; Monocyte% 10.8 % (0-10); NRBC Flagged by Analyzer 0 % (0-5); Neutrophil % 60.3 % (47-70); Platelet Count 323 K/mm3 (150-450); RBC Distribution Width SD 55.3 fl (35.1-43.9); Red Blood Count 4.24 M/mm3 (4.6-6.2); White Blood Count 5.8 K/mm3 (4.4-11.0)
[2020-12-25 06:48] LABS: Anion Gap 7 (5-15); BUN 12 mg/dL (7-18); BUN/Creat Ratio 14.5 RATIO (10-20); CRP 7.47 mg/L (0.0-3.0); Calcium,Total 9.2 mg/dL (8.5-10.1); Chloride 100 mmol/L (98-107); Creatinine, Serum 0.82 mg/dL (0.70-1.30); EST Glomerular Filtration Rate 102 mL/min (>60); Est Glom Filt Rate - Afr Amer 123 mL/min (>60); Estimated Creatinine Clearance 80.83 ml/min; Glucose 96 mg/dL (74-106); Potassium 4.2 mmol/L (3.5-5.1); Sodium Level 134 mmol/L (136-145)
[2020-12-25 07:36] VITALS: BP 134/69; PULSE 89; RESP 18; TEMP 36.8; O2SAT 96
[2020-12-25] MEDS: Ferrous Sulfate 325 MG Tablet PO (08:05)
[2020-12-25] MEDS: Cholecalciferol (VIT D3) 25 MCG TABLET (1,000 UNITS) PO (08:06)
[2020-12-25] MEDS: Famotidine 20 MG Tablet PO ×2 (08:06→20:17)
[2020-12-25] MEDS: Smz/Tmp Ds Tablet 2 TABLET PO ×2 (08:06→17:15)
[2020-12-25] MEDS: Senna/Docusate Sodium 1 Tablet PO ×2 (08:08→20:17)
--- NOTE | 2020-12-25 11:10 | PN_ITS ---
Progress Note Afebrile VSS-blood pressures well controlled Maintaining appropriate oxygen saturation on RA Oral intake is adequate Discussed with nursing - Yesterday I spoke with the charge nurse and she told me Theo was coughing a lot.......he attributed it to the Amantadine syrup however he was also coughing a lot at admission and it got much better with the addition of Atrovent nasal spray to his drug regimen. He is very impulsive and he does not alternate sips and bites and does not swallow more than once prior to putting another bite in his mouth. I suspect he may have aspirated yesterday AM. Today is is rarely coughing and the lungs are CTA. Reviewed the PT/OT/ST notes Medication list reviewed. All lab today was personally reviewed. Hemoglobin is stable 11.6. Platelets and white blood cell count are within normal limits. Eosinophils are 6.4% which is high but the patient has no rash and no pruritus. ESR is 44 today. Sodium is mildly decreased at 134 but stable. Potassium is 4.9. BUN is 12 with a creatinine of 0.82. CRP is 7.47. I reviewed the results of the MBS done on Friday. He was diagnosed with oral phase dysphagia characterized by slow mastication, poor bolus formation and decreased anterior?posterior oral transit resulting in oral residues. He also has pharyngeal phase dysphagia characterized by decreased laryngeal elevation, decreased anterior hyoid excursion, decreased epiglottic deflection and decreased tongue base retraction resulting in pharyngeal residue's, decreased closure of the laryngeal vestibule and mild trace penetration with thin liquids via sequential and straw sips. He was unable to clear the residuals in the vallecula and along the pharyngeal wall. There was no aspiration observed durin g the study. He was prescribed regular textures and thin liquids but instructed to take small bites and small sips. He is not to use straws and he is to employ multiple swallows. He is to alternate bites/solids and sips/liquids. He is to sit upright at 90 degrees and remain upright for 30 minutes after any p.o. intake. Eder has no complaints today. He is sleeping well and feels as though he is getting stronger. Physical Exam Const alert, oriented x3 and no apparent distress Constitutional Narrative: He had some questions about discharge that I answered for him. General Appearance: cooperative, comfortable and well kempt Resp normal respiratory effort and clear to auscultation bilaterally Resp Narrative: Not tachypneic and no labored breathing with exertion. Effort and Inspection: able to speak in complete sentences Cardio regular rate, regular rhythm and no gallops GI normal to inspection, nondistended, normoactive bowel sounds, soft to palpation and non-tender Extremity no calf tenderness and no pedal edema Skin Skin Narrative: Denies pruritus General Skin Exam: no breakdown Rashes: no rashes Wound Narrative: The incision is clean, dry, intact. There is no erythema, dehiscence, purulent discharge. 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 Continue therapy. ST will continue to work with him to slow down and take small sips and small bites and swallow more than once before taking another bite or sip. 2. He will be going home by himself and although he is stronger he still fatigues easily and needs to work on strength. 3. Sodium is stable. 4. Continue Bactrim. The ID doc would like to see him in the office in the end of February. 5. Watch for any signs of rash or complaints of pruritus .......since the eos are increased. He has no known allergies. Visit Charges Inpatient E&M: 69539 Subs Hosp L2
[2020-12-25] MEDS: Tamsulosin HCl 0.4 MG Capsule PO (17:15)
[2020-12-25] MEDS: Amitriptyline 100 MG Tablet 200 MG PO (20:14)
[2020-12-25] MEDS: Pramipexole Di-HCl 1 MG Tablet 1.5 MG PO (20:14)
[2020-12-25] MEDS: MELATONIN 3 MG TABLET PO (20:17)
[2020-12-25] MEDS: Mirtazapine 15 MG Tablet PO (20:17)
[2020-12-25 22:00] VITALS: BP 115/64; PULSE 89; RESP 16; TEMP 36.6; O2SAT 97
[2020-12-26] MEDS: Carbidopa/Levodopa 25/100 Tablet PO ×8 (03:57→17:46)
[2020-12-26] MEDS: Amantadine 100 MG Capsule PO ×2 (05:28→12:32)
[2020-12-26] MEDS: Ipratropium Bromide 0.06% NASAL SPRAY 2 SPRAY NASAL ×3 (05:29→20:25)
[2020-12-26] MEDS: Enoxaparin 40 MG/0.4 ML Syringe SC (05:29)
[2020-12-26 07:30] VITALS: BP 136/82; PULSE 84; RESP 18; TEMP 36.4; O2SAT 99
[2020-12-26] MEDS: Cholecalciferol (VIT D3) 25 MCG TABLET (1,000 UNITS) PO (07:52)
[2020-12-26] MEDS: Polyethylene Glycol 3350 17 GM PACKET PO (07:52)
[2020-12-26] MEDS: Senna/Docusate Sodium 1 Tablet PO ×2 (07:52→20:29)
[2020-12-26] MEDS: Famotidine 20 MG Tablet PO ×2 (07:52→20:28)
[2020-12-26] MEDS: Ferrous Sulfate 325 MG Tablet PO (07:52)
[2020-12-26] MEDS: Smz/Tmp Ds Tablet 2 TABLET PO ×2 (07:52→17:45)
[2020-12-26] MEDS: Tamsulosin HCl 0.4 MG Capsule PO (17:45)
[2020-12-26] MEDS: MELATONIN 3 MG TABLET PO (20:26)
[2020-12-26] MEDS: Amitriptyline 100 MG Tablet 200 MG PO (20:26)
[2020-12-26] MEDS: Pramipexole Di-HCl 1 MG Tablet 1.5 MG PO (20:27)
[2020-12-26] MEDS: Mirtazapine 15 MG Tablet PO (20:28)
[2020-12-26 22:00] VITALS: BP 116/65; PULSE 85; RESP 16; TEMP 36.9; O2SAT 98
[2020-12-26 23:44] VITALS: PULSE 87; RESP 14; O2SAT 97
[2020-12-27] MEDS: Carbidopa/Levodopa 25/100 Tablet PO ×8 (04:04→18:11)
[2020-12-27] MEDS: Enoxaparin 40 MG/0.4 ML Syringe SC (04:05)
[2020-12-27] MEDS: Amantadine 100 MG Capsule PO ×2 (04:05→12:05)
[2020-12-27] MEDS: Ipratropium Bromide 0.06% NASAL SPRAY 2 SPRAY NASAL ×3 (04:08→20:10)
[2020-12-27 07:58] VITALS: BP 119/81; PULSE 89; RESP 18; TEMP 36.4; O2SAT 97
[2020-12-27] MEDS: Ferrous Sulfate 325 MG Tablet PO (08:24)
[2020-12-27] MEDS: Smz/Tmp Ds Tablet 2 TABLET PO ×2 (08:24→16:24)
[2020-12-27] MEDS: Polyethylene Glycol 3350 17 GM PACKET PO (08:25)
[2020-12-27] MEDS: Senna/Docusate Sodium 1 Tablet PO ×2 (08:25→20:08)
[2020-12-27] MEDS: Famotidine 20 MG Tablet PO ×2 (08:25→20:09)
[2020-12-27] MEDS: Cholecalciferol (VIT D3) 25 MCG TABLET (1,000 UNITS) PO (08:25)
[2020-12-27] MEDS: Magnesium Hydroxide 30 ML UDC PO (10:17)
--- NOTE | 2020-12-27 12:03 | PCM.PN.BLA ---
Progress Note Afebrile VSS Maintaining appropriate oxygen saturation on RA Oral intake is good Discussed with nursing - no problems that need addressed Reviewed the PT/OT/ST notes Medication list reviewed. Physical Exam Const alert, oriented x3 and no apparent distress HEENT moist oral mucous membranes Resp normal respiratory effort, normal air movement and clear to auscultation bilaterally Cardio regular rate, regular rhythm, no murmurs, no rub and no gallops GI normal to inspection, nondistended, normoactive bowel sounds, soft to palpation and non-tender GI Narrative: having some constipation. No guarding with palpation Back/Spine Back/Spine Narrative: Incision is intact and healing well with no erythema and no DC. Extremity no calf tenderness and no pedal edema Skin General Skin Exam: no breakdown Rashes: no rashes Psych mental status grossly normal, thought process normal, cooperative and affect normal Assessment & Plan Assessment/Plan (1) Discitis: (2) Osteomyelitis: (3) Physical debility: (4) Depression: PLAN: 1. No changes to the drug regimen. 2. Continue therapy - he is doing well. 3. Mood is less depressed and he is eating very well now. Visit Charges Inpatient E&M: 96094 Subs Hosp L2
[2020-12-27] MEDS: Tamsulosin HCl 0.4 MG Capsule PO (16:24)
--- NOTE | 2020-12-27 16:34 | CHAPLAIN ---
Type of Pastoral Visit ___ Initial Visit _x__ Follow-up Visit ___ On-call Visit ___ General Patient Visit ___ Spiritual Assessment ___ Family Conference ___ Bereavement ___ Rapid Response ___ Code Blue ___ Other (describe below) Pastoral Care Referral From _x__ Patient ___ Family ___ Nurse ___ Physician ___ Landscape Gardener ___ Anesthesiology Fellow ___ Other (describe below) Sacrament/Intervention _x__ Active listening ___ Anointing ___ Samaritan ___ Bereavement ___ Communion ___ Belkis exploration ___ _x__ Life review _x__ Prayer ___ Reconciliation ___ Sacrament of Sick _x__ Supportive presence ___ Wedding ___ Other (describe below) Pastoral Comments patient has been open to visits and this follow up finds pt watching TV and resting in bed; pt says he had active therapy today; pt will find out more tomorrow about his discharge plans; most of conversation is casual life review to keep pt company and give support; prayer
[2020-12-27 19:44] VITALS: BP 138/84; PULSE 84; RESP 16; TEMP 36.7; O2SAT 97
[2020-12-27] MEDS: Bisacodyl 10 MG Suppository RC (20:07)
[2020-12-27] MEDS: Mirtazapine 15 MG Tablet PO (20:08)
[2020-12-27] MEDS: Pramipexole Di-HCl 1 MG Tablet 1.5 MG PO (20:09)
[2020-12-27] MEDS: Amitriptyline 100 MG Tablet 200 MG PO (20:10)
[2020-12-27] MEDS: MELATONIN 3 MG TABLET PO (20:10)
[2020-12-28] MEDS: Carbidopa/Levodopa 25/100 Tablet PO ×8 (03:57→18:26)
--- NOTE | 2020-12-28 04:15 | NURSING ---
PT OOB AND SETS OFF PA ALARM AND WALKING IN ROOM AGAIN. STONECUTTER HAND STAFF THOUGHT PT'S EYES ROLLED BACKWARD IN HEAD BRIEFLY WHEN RETURNED TO BED. [facility] OPERATIOR PLACES PAGE TO DR MITCHELL. VITAL SIGNS OBTAINED.
[2020-12-28 04:18] VITALS: BP 137/67; PULSE 84; RESP 18; TEMP 36.7; O2SAT 97
--- NOTE | 2020-12-28 04:40 | NURSING ---
[facility] PARTS COUNTER SPECIALIST NOTIFIED HOSPITALIST HAS NOT RETURNED CALL.
--- NOTE | 2020-12-28 04:44 | RAD_ITS ---
STUDY: X-RAY CHEST REASON FOR EXAM: Male, 60 years old. Confusion TECHNIQUE: Single AP portable view of the chest. COMPARISON: None. FINDINGS: Right chest neurostimulator device. Postsurgical change of the right humerus. The lungs are clear and expanded. There is no demonstrated pleural abnormality. Normal size heart. Normal mediastinum and alirio. Normal visualized pulmonary arteries. Normal visualized aortic arch and descending thoracic aorta. Normal visualized thoracic spine. Normal visualized ribs, clavicles, and shoulders. There is no demonstrated abnormality of the visualized soft tissue structures of the upper abdomen. RAD/Chest 1 View (Portable) IMPRESSION: Normal x-ray examination of the chest. Electronically Signed: Price Frias DO at 5:37 EST Tel , Service support ,
--- NOTE | 2020-12-28 04:47 | NURSING ---
DR MITCHELL NOTIFIED THAT PT HAS NOT SLEPT ALL NIGHT, IS ACTING CONFUSED AT TIMES AND HAS HALLUCINATED BRIEFLY, GETTING OOB AND SETTING OFF ALARMS. INFORMED THAT PT'S EYES WERE NOTED BY STAFF TO ROLL BACK IN HEAD BRIEFLY. PT HAS REMAINED A/O X 3. DR MITCHELL PUTS IN ORDERS FOR PT.
--- NOTE | 2020-12-28 04:51 | NURSING ---
PORT CXR BEING DONE ON PT.
[2020-12-28] MEDS: Amantadine 100 MG Capsule PO ×2 (05:10→12:24)
[2020-12-28] MEDS: Enoxaparin 40 MG/0.4 ML Syringe SC (05:12)
[2020-12-28] MEDS: Ipratropium Bromide 0.06% NASAL SPRAY 2 SPRAY NASAL ×3 (05:12→21:00)
--- NOTE | 2020-12-28 05:20 | NURSING ---
STRAIGHT CATHED PT FOR 0 ML URINE. BLADDER SCANNED FOR 0 ML AFTER PROCEDURE. PT TOLERATES PROCEDURE WELL.
[2020-12-28 05:50] LABS: Absolute Lymphocyte Count 1.06 X10^3/uL (0.83-4.51); Basophil# 0.06 X10^3/uL; Basophil% 0.9 % (0-1); Eosinophil# 0.21 X10^3/uL; Hematocrit 34.9 % (40-54); Hemoglobin 11.2 g/dL (13.0-16.5); Lymphocyte # 1.06 X10^3/ul (0.83-4.51); Lymphocyte % 15.1 % (19-41); Mean Corp Hgb Conc 32.1 g/dL (32-36); Mean Corpuscular Hgb 28.1 pg (27.0-32.0); Mean Corpuscular Volume 87.7 fL (80-94); Mean Platelet Vol. 8.8 fl (6.2-12.0); Monocyte% 8.6 % (0-10); NRBC Flagged by Analyzer 0 % (0-5); Neutrophil # 5.03 X10^3/uL (2.7-7.7); Neutrophil % 71.8 % (47-70); Platelet Count 299 K/mm3 (150-450); RBC Distribution Width CV 17.2 % (11.6-14.6); Red Blood Count 3.98 M/mm3 (4.6-6.2)
[2020-12-28 06:03] LABS: Anion Gap 6 (5-15); BUN 13 mg/dL (7-18); BUN/Creat Ratio 15.6 RATIO (10-20); Calcium,Total 9.1 mg/dL (8.5-10.1); Chloride 100 mmol/L (98-107); Creatinine, Serum 0.84 mg/dL (0.70-1.30); EST Glomerular Filtration Rate 100 mL/min (>60); Est Glom Filt Rate - Afr Amer 122 mL/min (>60); Estimated Creatinine Clearance 77.28 ml/min; Glucose 95 mg/dL (74-106); Sodium Level 133 mmol/L (136-145)
[2020-12-28 07:53] VITALS: BP 99/62; PULSE 89; RESP 16; TEMP 36.3; O2SAT 98
[2020-12-28] MEDS: Smz/Tmp Ds Tablet 2 TABLET PO ×2 (08:21→16:16)
[2020-12-28] MEDS: Polyethylene Glycol 3350 17 GM PACKET PO (08:21)
[2020-12-28] MEDS: Senna/Docusate Sodium 1 Tablet PO (08:21)
[2020-12-28] MEDS: Cholecalciferol (VIT D3) 25 MCG TABLET (1,000 UNITS) PO (08:21)
[2020-12-28] MEDS: Ferrous Sulfate 325 MG Tablet PO (08:21)
[2020-12-28] MEDS: Famotidine 20 MG Tablet PO ×2 (08:21→21:01)
--- NOTE | 2020-12-28 09:26 | PN_ITS ---
Progress Note Afebrile VSS-blood pressure this a.m. is mildly decreased at 99/62 with a mean arterial pressure of 74. Maintaining appropriate oxygen saturation on RA Oral intake is good Discussed with nursing - Nursing reports that last night he was confused, getting out of bed by himself, found walking in the barth, undressing. The night hospitalist was called and lab was ordered. All lab was personally reviewed. The white blood cell count is 7.0 with 72% neutrophils. Eosinophils are now normal. Hemoglobin is stable at 11.2. Sodium is low at 133. BUN was 13 with a creatinine of 0.84 which is stable. A UA was ordered however nursing BladderScan the patient and he had 0 residual which is likely an error. He was rescanned today with rehab's scanner and it was 0 and he was rescanned with TCU's scanner and he had 700 in the bladder. He had a straight cath and it will be sent for UA and culture now. A CXR was done last night and showed no infi ltrates. There does appear to be a lot of stool accumulation in the upper abdomen. No evidence of obstruction. Reviewed the PT/OT/ST notes Medication list reviewed. Eder tells me that sometimes it de [place] ro[place] when he urinates. He has no CVA tenderness. He feels urgency and only goes a little and then 30 minutes late he feels as though he has to go again. No change in occasional cough and it is dry. Denies SOB. No abdominal pain. Still having some problems with constipation and has been getting laxatives. Denies ST, facial pain, CAMARA. Back pain is no worse and in fact is getting better. Physical Exam Const alert, oriented x3 and no apparent distress Constitutional Narrative: Lying in bed and appears comfortable. No cough. HEENT moist oral mucous membranes and oropharynx normal Resp Resp Narrative: Initially had some crackles in the bases but, after a few deep breaths both lungs were CTA with excellent air exchange. Cardio regular rate, regular rhythm, S1 normal heart sound, S2 normal heart sound, no murmurs and no gallops GI normal to inspection, nondistended, normoactive bowel sounds, soft to palpation and non-tender GI Narrative: No guarding and no masses. No CVA tenderness. Active BS's. Back/Spine Back/Spine Narrative: The incision is intact and has no erythema and no DC. 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 Await the results of the UA. If dirty will start an antibiotic and if not will need to consider other etiologies for delirium.....he is back to baseline this AM except for persistent restless and increased impulsivity so maybe he was sundowning? or could it be due to Parkinson's? 2. Continue therapy. Visit Charges Inpatient E&M: 84029 Subs Hosp L3
[2020-12-28 09:38] LABS: Bacteria 0 SEEN /hpf (None Seen); Mucous, Urine 0 SEEN /hpf (<or=2+); Red Blood Cells-Urine 0 SEEN /hpf (0-5); Squamous Epithelial Cells - UA 0 SEEN /hpf (0-5); White Blood Cells 0 SEEN /hpf (0-5)
[2020-12-28 09:42] LABS: Color, Urine Yellow (Yellow); Glucose, Dipstick Normal (Normal); Ketone-Dipstick Negative (Negative); Leukocyte Esterase-Dipstick Negative /ul (Negative); Nitrite-Dipstick Negative (Negative); Occult Blood-Urine Negative /ul (Negative); Protein-Dipstick Negative (Negative); Urine Bilirubin Dipstick Negative (Negative); Urine Clarity Clear (Clear); Urine Urobilinogen Normal (Normal)
--- NOTE | 2020-12-28 13:42 | CASEMGMT ---
Social Work IDT met with patient and sister for care plan meeting. Discussed patient's progress in therapy and nursing. Explained Shun ASHLEY NRD 12/29 and continued stay is not guaranteed. Discussed IDTs safety concerns with pt returning home alone in the 2 story home. Pt has no one to assist him at home. Sister is getting knee surgery tomorrow. Inquired about alternative plan. Pt stated he has to try it one more time at home and if that doesn't work, pt agreeable to AL. Offered to make referral to [facility] Waiver program for community assistance and/or Waiver AL program. Pt agreed. SW made referral. IDT recommending more time to improve on independence and functionality. ST following as well. Will continue to follow. Will ReTeam next week. Joya Patino MSW REPERTOIRE MANAGER
[2020-12-28] MEDS: Tamsulosin HCl 0.4 MG Capsule PO (16:16)
[2020-12-28] MEDS: Amitriptyline 100 MG Tablet 200 MG PO (21:00)
[2020-12-28] MEDS: Pramipexole Di-HCl 1 MG Tablet 1.5 MG PO (21:01)
[2020-12-28] MEDS: MELATONIN 3 MG TABLET PO (21:01)
[2020-12-28] MEDS: Senna/Docusate Sodium 1 Tablet 2 TABLET PO (21:02)
[2020-12-28 21:13] VITALS: BP 116/69; PULSE 92; RESP 18; TEMP 36.7; O2SAT 96
--- NOTE | 2020-12-28 22:38 | NURSING ---
Bladder scan showed >650, patient tried to void in urinal, unable to void. Straight cath done, 700cc clear yellow urine drained. Patient tolerated well.
[2020-12-28] MEDS: Acetaminophen 500 MG Tablet 1000 MG PO (23:33)
[2020-12-29 00:24] VITALS: BP 108/63; PULSE 103; RESP 18; TEMP 36.6; O2SAT 95
--- NOTE | 2020-12-29 00:51 | NURSING ---
Addendum entered by Maritza Vaughan 12/29/20 03:27: Tried to give patient dose of melatonin, too confused to take, couldn't hold pill cup, wouldn't open mouth. Still restless and rolling around bed. Gave warm bed bath with help of FREELANCE ART DIRECTOR and patient finally started to calm down and doze off. Addendum entered by Maritza Vaughan 12/29/20 02:40: Patient more restless and confused after ativan, throwing himself around the bed, yelling out, worsening tremors. FREELANCE ART DIRECTOR sitting with patient at bedside to prevent falls as patient constantly setting off alarm and trying to climb out of bed. Paged and Spoke with Dr. Tobin again, updated on patient status, asked MD to evaluate before further medicating. MD in room to see patient, verbal order for extra dose of melatonin for now. Original Note: Patient has been restless for last few hours, climbing out of bed without calling for assistance and rolling around his bed. He denies pain or concerns except mild knee pain, tylenol given. He continued to be restless, alarm set to prevent fall. Patient setting off alarm every few minutes. He will answer orientation questions correctly but said he saw a motorcyclist out in the hallway and later put his hand to his mouth like he was feeding himself something and started chewing even though his hand was empty. Paged Dr. Tobin and updated on patient status, order for ativan placed by MD.
[2020-12-29] MEDS: LORazepam 1 MG Tablet PO (01:07)
[2020-12-29] MEDS: Enoxaparin 40 MG/0.4 ML Syringe SC (06:24)
[2020-12-29] MEDS: Amantadine 100 MG Capsule PO ×2 (06:25→12:41)
[2020-12-29] MEDS: Carbidopa/Levodopa 25/100 Tablet PO ×7 (06:26→18:09)
[2020-12-29] MEDS: Ipratropium Bromide 0.06% NASAL SPRAY 2 SPRAY NASAL ×3 (06:30→20:02)
--- NOTE | 2020-12-29 07:05 | NURSING ---
Bladder scan >660, 16F cifuentes placed per order. Patient tolerated well.
[2020-12-29] MEDS: Smz/Tmp Ds Tablet 2 TABLET PO ×2 (07:44→16:34)
[2020-12-29] MEDS: Ferrous Sulfate 325 MG Tablet PO (07:44)
[2020-12-29] MEDS: Famotidine 20 MG Tablet PO ×2 (07:44→20:05)
[2020-12-29] MEDS: Senna/Docusate Sodium 1 Tablet 2 TABLET PO ×2 (07:47→20:04)
[2020-12-29 08:10] VITALS: BP 109/70; PULSE 73; RESP 18; TEMP 36.6; O2SAT 93
[2020-12-29] MEDS: Cholecalciferol (VIT D3) 25 MCG TABLET (1,000 UNITS) PO (10:46)
--- NOTE | 2020-12-29 11:38 | PCM.PN.BLA ---
Progress Note Afebrile since admission VSS Maintaining appropriate oxygen saturation on RA Oral intake is good Discussed with nursing - Eder had another bad night. He was having hallucinations and delusions and did not sleep. Reviewed the PT/OT/ST notes Medication list reviewed. Mirtazapine was discontinued yesterday because I felt this was the etiology of the new delirium since it was recently started and we have not had a problem prior to this. He was given Ativan by the night hospitalist and this was not beneficial. today Eder is oriented and has no complaints. He has been participating with therapy. He denies cephalgia, CP, SOB, calf pain, N/V/abd pain. Still with fast movements and has not been able to slow down with eating yet. Physical Exam Const alert, oriented x3 and no apparent distress General Appearance: cooperative Resp normal respiratory effort and clear to auscultation bilaterally Cardio regular rate, regular rhythm, S1 normal heart sound, S2 normal heart sound and no gallops GI normal to inspection, nondistended, normoactive bowel sounds, soft to palpation and non-tender GI Narrative: Last BM was yesterday and we increased the senna to 2 tabs BID due to constipation Narrative: Fung was inserted due to persistent urine retention and this I suspect is related to Elavil 200 mg at night. Extremity no calf tenderness and no pedal edema Skin General Skin Exam: no breakdown Rashes: no rashes Psych Psych Narrative: He is having hallucinations and delusions only at night. Not sleeping well. Assessment & Plan Assessment/Plan (1) Urine retention: PLAN: I suspect this related to the high dose of TCA. Will start to taper and decrease to 150 mg at HS tonight. If depression is exacerbated will add Sertraline....it is the least likely to cause motor dysfunction in patient's with PD. Start at 25 mg daily AFTER the Remeron is out of his system and the delirium has resolved. I will check orthostatics (2) Delirium: PLAN: After a literature search for Parkinson's hallucinations was reviewed I have decided to start Seroquel 12.5 mg at HS. Will check an EKG today because he is on more than 1 medication that can prolong QT. Will have to watch the sodium since SSRI's can cause hyponatremia and he is already mildly hyponatremic. If the delirium does not improve will need to consider it may be the Bactrim because this is also recently added to the drug regimen. Will plug all the medications into a drug interaction program and reassess the medications. (3) Physical debility: PLAN: Continue therapy. (4) S/P excisional debridement: (5) Spinal surgery in prior 3 months: PLAN: the incision is intact without any erythema, dehiscence, purulent discharge. There is no swelling at the site and he is not tender. 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 Continue Bactrim, likely for the rest of his life. Monitor CBC for cytopenias. (8) Hyponatremia: PLAN: recheck a CMP and a CBC on Friday. (9) Parkinson's disease: PLAN: Continue the current meds. (10) Depression: PLAN: Continue Elavil but, decrease the dose to 150 mg at HS in light of the urine retention and the need for Fung placement. (11) BPH (benign prostatic hyperplasia): PLAN: Check orthostatics and if they are negative consider increasing the Flomax or adding Proscar. Visit Charges Inpatient E&M: 07984 Subs Hosp L3
[2020-12-29 12:46] VITALS: BP 109/68; BP 113/70; BP 119/76; PULSE 70; PULSE 78
[2020-12-29] MEDS: Tamsulosin HCl 0.4 MG Capsule PO (16:35)
[2020-12-29 19:49] VITALS: BP 127/71; PULSE 91; RESP 16; TEMP 36.7; O2SAT 97
[2020-12-29] MEDS: QUEtiapine 25 MG Tablet 12.5 MG PO (20:03)
[2020-12-29] MEDS: Pramipexole Di-HCl 1 MG Tablet 1.5 MG PO (20:03)
[2020-12-29] MEDS: MELATONIN 3 MG TABLET PO (20:04)
--- NOTE | 2020-12-30 00:02 | PCM.PN.BLA ---
Progress Note Patient with a history of perivertebral abscess. Previously on Cubicin and rifadin. Pulmonary blood culture 1 of 2 bottles with gram-positive cocci PCR is pending. We will continue patient on his p.o. Bactrim. Will await PCR of blood. Of note patient's has not had fever in the last 24 hours. White count in last 24 hours is normal.
--- NOTE | 2020-12-30 00:04 | NURSING ---
Addendum entered by Gilda Anderson 12/30/20 00:14: Dr. Avendaño is also aware that the patient is on PO Bactrim currently. Original Note: Dr. Avendaño called this RN to discuss positive blood culture finding. He states he is going to wait for the PCR. This RN confirmed that his WBC count is WNL and he has had no fevers in the last 24 hours. Lab was also called to confirm that this was a preliminary result and Aashish states the ID should be available in the next few hours. Will pass in to next nurse and continue to monitor patient.
--- NOTE | 2020-12-30 00:38 | NURSING ---
Patient continues to be sleepless. He is alert and oriented. He continues to want to get out of bed and move around. This RN wheeled patient around unit in wheelchair several times. He was assisted back to bed with PA attached. Lights dimmed in room. Will monitor.
[2020-12-30] MEDS: Carbidopa/Levodopa 25/100 Tablet PO ×8 (04:30→18:25)
[2020-12-30] MEDS: Enoxaparin 40 MG/0.4 ML Syringe SC (05:47)
[2020-12-30] MEDS: Ipratropium Bromide 0.06% NASAL SPRAY 2 SPRAY NASAL ×3 (05:49→20:10)
[2020-12-30] MEDS: Amantadine 100 MG Capsule PO ×2 (05:49→12:35)
[2020-12-30 06:00] VITALS: BP 106/66; BP 110/70; BP 92/56; PULSE 91; PULSE 98
[2020-12-30] MEDS: Smz/Tmp Ds Tablet 2 TABLET PO ×2 (08:22→16:29)
[2020-12-30] MEDS: Famotidine 20 MG Tablet PO ×2 (08:22→20:09)
[2020-12-30 08:23] VITALS: BP 116/71; PULSE 88; RESP 16; TEMP 36.3; O2SAT 94
[2020-12-30] MEDS: Ferrous Sulfate 325 MG Tablet PO (08:23)
[2020-12-30] MEDS: Cholecalciferol (VIT D3) 25 MCG TABLET (1,000 UNITS) PO (10:32)
[2020-12-30] MEDS: Tamsulosin HCl 0.4 MG Capsule PO (16:29)
[2020-12-30 19:36] VITALS: BP 120/74; PULSE 81; RESP 16; TEMP 36.5; O2SAT 98
[2020-12-30] MEDS: Pramipexole Di-HCl 1 MG Tablet 1.5 MG PO (20:09)
[2020-12-30] MEDS: MELATONIN 3 MG TABLET PO (20:10)
[2020-12-30] MEDS: QUEtiapine 25 MG Tablet 12.5 MG PO (20:11)
[2020-12-30] MEDS: Senna/Docusate Sodium 1 Tablet 2 TABLET PO (20:12)
[2020-12-31] MEDS: Carbidopa/Levodopa 25/100 Tablet PO ×8 (03:32→18:50)
[2020-12-31 06:15] VITALS: BP 117/69; BP 123/71; BP 99/68; PULSE 103; PULSE 82; PULSE 99
[2020-12-31] MEDS: Amantadine 100 MG Capsule PO ×2 (06:24→11:48)
[2020-12-31] MEDS: Enoxaparin 40 MG/0.4 ML Syringe SC (06:25)
[2020-12-31] MEDS: Ipratropium Bromide 0.06% NASAL SPRAY 2 SPRAY NASAL ×3 (06:25→21:35)
[2020-12-31] MEDS: Cholecalciferol (VIT D3) 25 MCG TABLET (1,000 UNITS) PO (07:53)
[2020-12-31] MEDS: Famotidine 20 MG Tablet PO ×2 (07:53→21:34)
[2020-12-31] MEDS: Smz/Tmp Ds Tablet 2 TABLET PO ×2 (07:53→16:05)
[2020-12-31] MEDS: Senna/Docusate Sodium 1 Tablet 2 TABLET PO ×2 (07:54→21:34)
[2020-12-31] MEDS: Ferrous Sulfate 325 MG Tablet PO (07:55)
[2020-12-31 09:00] VITALS: BP 123/71; PULSE 82; RESP 15; TEMP 36.9; O2SAT 96
--- NOTE | 2020-12-31 10:20 | PCM.PN.BLA ---
Progress Note Afebrile VSS Maintaining appropriate oxygen saturation on RA Oral intake is excellent Discussed with nursing - no problems that need addressed. He was able to sleep through the night last night and had no delusions or hallucinations. Reviewed the PT/OT/ST notes Medication list reviewed. Denies chest pain, shortness of breath, calf pain, lightheadedness, dysuria, abdominal pain, palpitations. He is not aware that he was having hallucinations. Physical Exam Const alert, oriented x3 and no apparent distress General Appearance: cooperative Resp normal respiratory effort and clear to auscultation bilaterally Cardio regular rate, regular rhythm and no gallops GI normal to inspection, nondistended, normoactive bowel sounds, soft to palpation and non-tender Extremity normal capillary refill, no calf tenderness and no pedal edema Skin General Skin Exam: no breakdown Rashes: no rashes Neuro Neuro Narrative: tremors on the right worse than on the left. Still somewhat impulsive. Ambulating with a FWW at 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 I suspect the delirium was due to Remeron. Will continue the Seroquel for a few nights and if no delusions or hallucinations will discontinue and observe for recurrence of hallucinations. 2. Lab ordered for tomorrow AM 3. continue therapy. voiding trial this week. If he is still retaining with decrease the dose of the Elavil to 100 mg at the end of the week and try again 5-7 days later to DC the Fung again. 4. HHC at [facility] Visit Charges Inpatient E&M: 62829 Subs Hosp L2
[2020-12-31] MEDS: Tamsulosin HCl 0.4 MG Capsule PO (16:06)
[2020-12-31 19:29] VITALS: BP 110/67; PULSE 72; RESP 18; TEMP 36.6; O2SAT 96
[2020-12-31] MEDS: Pramipexole Di-HCl 1 MG Tablet 1.5 MG PO (21:34)
[2020-12-31] MEDS: MELATONIN 3 MG TABLET PO (21:35)
[2020-12-31] MEDS: QUEtiapine 25 MG Tablet 12.5 MG PO (21:35)
[2021-01-01] MEDS: Carbidopa/Levodopa 25/100 Tablet PO ×8 (04:16→18:35)
[2021-01-01 05:11] VITALS: BP 114/66; BP 119/74; BP 127/76; PULSE 101; PULSE 108; PULSE 88
[2021-01-01] MEDS: Amantadine 100 MG Capsule PO ×2 (05:18→12:17)
[2021-01-01] MEDS: Ipratropium Bromide 0.06% NASAL SPRAY 2 SPRAY NASAL ×3 (05:19→20:44)
[2021-01-01] MEDS: Enoxaparin 40 MG/0.4 ML Syringe SC (05:23)
[2021-01-01 06:08] LABS: Absolute Lymphocyte Count 1.12 X10^3/uL (0.83-4.51); Absolute Neutrophil Count 4.2 X10^3/uL (2.0-7.7); Basophil# 0.05 X10^3/uL; Basophil% 0.8 % (0-1); Eosinophil# 0.45 X10^3/uL; Eosinophils% 7.1 % (0-5); Hematocrit 37.5 % (40-54); Lymphocyte # 1.12 X10^3/ul (0.83-4.51); Lymphocyte % 17.6 % (19-41); Mean Corpuscular Hgb 28.2 pg (27.0-32.0); Mean Corpuscular Volume 88.2 fL (80-94); Mean Platelet Vol. 8.6 fl (6.2-12.0); Monocyte# 0.53 X10^3/uL; Monocyte% 8.3 % (0-10); NRBC Flagged by Analyzer 0 % (0-5); Neutrophil # 4.19 X10^3/uL (2.7-7.7); Neutrophil % 65.7 % (47-70); Platelet Count 333 K/mm3 (150-450); RBC Distribution Width CV 17.5 % (11.6-14.6); RBC Distribution Width SD 56.5 fl (35.1-43.9); Red Blood Count 4.25 M/mm3 (4.6-6.2); White Blood Count 6.4 K/mm3 (4.4-11.0)
[2021-01-01 06:47] LABS: ALB/GLOB Ratio 0.7 RATIO (0.9-2.4); AST(SGOT) 16 U/L (15-37); Alanine Aminotransfer ALT/SGPT 7 U/L (16-61); Albumin, Serum 3.2 g/dL (3.2-5.0); Alkaline Phosphatase 95 U/L (45-117); Anion Gap 6 (5-15); BUN 16 mg/dL (7-18); BUN/Creat Ratio 17.3 RATIO (10-20); Calcium,Total 9.2 mg/dL (8.5-10.1); Chloride 101 mmol/L (98-107); Creatinine, Serum 0.93 mg/dL (0.70-1.30); EST Glomerular Filtration Rate 89 mL/min (>60); Est Glom Filt Rate - Afr Amer 108 mL/min (>60); Globulin 4.7 g/dL (2.2-4.2); Glucose 101 mg/dL (74-106); Potassium 4.1 mmol/L (3.5-5.1); Protein, Total 7.9 g/dL (6.4-8.2); Sodium Level 132 mmol/L (136-145)
[2021-01-01 07:03] VITALS: BP 127/76; PULSE 88; RESP 18; TEMP 36.7; O2SAT 97
[2021-01-01] MEDS: Smz/Tmp Ds Tablet 2 TABLET PO ×2 (07:43→16:21)
[2021-01-01] MEDS: Ferrous Sulfate 325 MG Tablet PO (07:43)
[2021-01-01] MEDS: Cholecalciferol (VIT D3) 25 MCG TABLET (1,000 UNITS) PO (07:43)
[2021-01-01] MEDS: Senna/Docusate Sodium 1 Tablet 2 TABLET PO ×2 (07:45→20:45)
[2021-01-01] MEDS: Famotidine 20 MG Tablet PO ×2 (07:45→20:41)
--- NOTE | 2021-01-01 10:47 | PCM.PN.BLA ---
Progress Note Afebrile VSS Maintaining appropriate oxygen saturation on RA Oral intake is very good. Good urine output from the Fung. Discussed with nursing - no problems that need addressed. Slept well last night per nursing and had no hallucinations. Reviewed the PT/OT/ST notes Medication list reviewed. Hemoglobin is up to 12 from 11.2 on 12/28/2020. White blood cell count is normal and the platelets are also within normal limits. All lab was personally reviewed. Less agitated and less psychomotor activity. His hafsa when ambulating is better/slower. Speech is slower than it had been. Denies CP, SOB, palpitations, lightheadedness. Rare dry cough and usually when he is drinking/gulping rather than sipping. Sodium is low at 132 and the potassium is 4.1. The BUN is 16 with a creatinine of 0.93 which has increased from 0.7 on 12/18/2020. Denies CP, SOB, lightheadedness, suprapubic pain, N/V. Physical Exam Const alert, oriented x3 and no apparent distress Resp clear to auscultation bilaterally Cardio regular rate, regular rhythm and no gallops Extremity no calf tenderness and no pedal edema Skin General Skin Exam: no breakdown Rashes: no rashes Assessment & Plan Assessment/Plan (1) Urine retention: (2) Hyponatremia: (3) Physical debility: (4) Autonomic dysfunction: PLAN: 1. continue to taper the Elavil 2. Continue therapy 3. Continue the current medications Visit Charges Inpatient E&M: 73481 Subs Hosp L2
[2021-01-01 11:23] LABS: CRP 6.97 mg/L (0.0-3.0)
[2021-01-01 11:24] LABS: Erythrocyte Sedimentation Rate 39 mm/hr (0-20)
[2021-01-01] MEDS: Tamsulosin HCl 0.4 MG Capsule PO (16:21)
--- NOTE | 2021-01-01 19:06 | NURSING ---
Patient agreed to take covid vaccine booster tomorrow and sister has been made aware. Records received from [facility] clinic of his past vaccine admin dates.
[2021-01-01 19:14] VITALS: BP 113/77; PULSE 90; RESP 16; TEMP 36.7; O2SAT 98
[2021-01-01] MEDS: QUEtiapine 25 MG Tablet 12.5 MG PO (20:41)
[2021-01-01] MEDS: MELATONIN 3 MG TABLET PO (20:41)
[2021-01-01] MEDS: Pramipexole Di-HCl 1 MG Tablet 1.5 MG PO (20:42)
[2021-01-02] MEDS: Carbidopa/Levodopa 25/100 Tablet PO ×8 (04:01→18:39)
[2021-01-02] MEDS: Ipratropium Bromide 0.06% NASAL SPRAY 2 SPRAY NASAL ×3 (05:35→20:49)
[2021-01-02] MEDS: Amantadine 100 MG Capsule PO ×2 (05:36→12:32)
[2021-01-02] MEDS: Enoxaparin 40 MG/0.4 ML Syringe SC (05:36)
[2021-01-02] MEDS: Smz/Tmp Ds Tablet 2 TABLET PO ×2 (07:58→16:38)
[2021-01-02] MEDS: Famotidine 20 MG Tablet PO ×2 (07:58→20:48)
[2021-01-02] MEDS: Senna/Docusate Sodium 1 Tablet 2 TABLET PO ×2 (07:58→20:48)
[2021-01-02] MEDS: Ferrous Sulfate 325 MG Tablet PO (07:58)
[2021-01-02] MEDS: Cholecalciferol (VIT D3) 25 MCG TABLET (1,000 UNITS) PO (07:59)
[2021-01-02 08:42] VITALS: BP 110/67; PULSE 95; RESP 18; TEMP 36.5; O2SAT 100
[2021-01-02] MEDS: Tamsulosin HCl 0.4 MG Capsule PO (16:38)
[2021-01-02 19:55] VITALS: BP 116/74; PULSE 88; RESP 16; TEMP 36.7; O2SAT 98
[2021-01-02] MEDS: Pramipexole Di-HCl 1 MG Tablet 1.5 MG PO (20:48)
[2021-01-02] MEDS: MELATONIN 3 MG TABLET PO (20:49)
[2021-01-02] MEDS: QUEtiapine 25 MG Tablet 12.5 MG PO (20:50)
--- NOTE | 2021-01-03 01:45 | NURSING ---
PT HAS SET OFF BED ALARM 3 TIMES IN SHORT INTERVAL OF TIME. THIS TIME FOUND SITTING ON SIDE OF BED. PT IS RESTLESS AND VERY WIDE EYES. SPEECH IS SLURRED AND PT DIFFICULT TO UNDERSTAND. MAKES REFERENCES TO ANOTHER MAN IN THE ROOM AND POINTS TOWARD RECLINER. WHEN INFORMED HE IS HALLUCINATING AND NOBODY ELSE IS IN ROOM, PT TRIES TO ACT IF HE WERE JUST DREAMING SOMEONE NAMED RICHELLE, MAILE BUNCH, WAS IN RECLINER. PT IS AGREEABLE TO JUST WATCH TV FOR AWHILE BEFORE TRYING TO RETURN TO SLEEP.
[2021-01-03] MEDS: Carbidopa/Levodopa 25/100 Tablet PO ×8 (03:47→18:34)
[2021-01-03] MEDS: Amantadine 100 MG Capsule PO ×2 (04:43→12:15)
[2021-01-03] MEDS: Ipratropium Bromide 0.06% NASAL SPRAY 2 SPRAY NASAL ×3 (04:44→20:57)
[2021-01-03] MEDS: Enoxaparin 40 MG/0.4 ML Syringe SC (04:44)
[2021-01-03 07:28] VITALS: BP 123/70; PULSE 85; RESP 20; TEMP 36.7; O2SAT 99
[2021-01-03] MEDS: Ferrous Sulfate 325 MG Tablet PO (07:44)
[2021-01-03] MEDS: Smz/Tmp Ds Tablet 2 TABLET PO ×2 (07:44→16:35)
[2021-01-03] MEDS: Famotidine 20 MG Tablet PO ×2 (07:45→20:56)
[2021-01-03] MEDS: Senna/Docusate Sodium 1 Tablet 2 TABLET PO ×2 (07:46→20:56)
[2021-01-03] MEDS: Cholecalciferol (VIT D3) 25 MCG TABLET (1,000 UNITS) PO (07:46)
--- NOTE | 2021-01-03 10:25 | PCM.PN.BLA ---
Progress Note Afebrile VSS Maintaining appropriate oxygen saturation on RA Oral intake is good Discussed with nursing - He was restless again last night and hallucinating. The Fung was removed this AM. Post void residuals were ordered. Reviewed the PT/OT/ST notes Medication list reviewed. He has no complaints today. He is appropriate and doing his therapy. He is alert and able to follow commands. No hallucinations. Can not tell me what went on last night. Physical Exam Const alert, oriented x3 and no apparent distress Resp normal respiratory effort and clear to auscultation bilaterally Effort and Inspection: able to speak in complete sentences Cardio regular rate, regular rhythm, S1 normal heart sound, S2 normal heart sound, no murmurs, no rub and no gallops GI normal to inspection, nondistended, normoactive bowel sounds, soft to palpation and non-tender Extremity no calf tenderness and no pedal edema Neuro Neuro Narrative: tremors due to PD but no focal findings Assessment & Plan Assessment/Plan (1) Parkinson's disease: (2) Urine retention: (3) Physical debility: PLAN: Add Seroquel at HS to see if restlessness and confusion at night improve. Leave the Fung out Post void residuals ordered. Visit Charges Inpatient E&M: 24351 Subs Hosp L2
[2021-01-03] MEDS: Tamsulosin HCl 0.4 MG Capsule PO (16:35)
[2021-01-03 17:18] LABS: Bacteria 0 SEEN /hpf (None Seen); Mucous, Urine 0 SEEN /hpf (<or=2+); Squamous Epithelial Cells - UA 0 SEEN /hpf (0-5); White Blood Cells 0 SEEN /hpf (0-5)
[2021-01-03 17:28] LABS: Color, Urine Yellow (Yellow); Glucose, Dipstick Normal (Normal); Ketone-Dipstick Negative (Negative); Leukocyte Esterase-Dipstick Negative /ul (Negative); Nitrite-Dipstick Negative (Negative); Occult Blood-Urine 25 /ul (Negative); Protein-Dipstick Negative (Negative); Specific Gravity, Urine 1.015 (1.002-1.030); Urine Bilirubin Dipstick Negative (Negative); Urine Clarity Clear (Clear); Urine Urobilinogen Normal (Normal); Urine pH 6.5 (5.0 - 8.0)
[2021-01-03 17:47] LABS: Red Blood Cells-Urine 0-5 SEEN /hpf (0-5)
[2021-01-03 19:28] VITALS: BP 137/75; PULSE 86; RESP 14; TEMP 36.9; O2SAT 99
[2021-01-03] MEDS: Magnesium Hydroxide 30 ML UDC PO (20:55)
[2021-01-03] MEDS: Pramipexole Di-HCl 1 MG Tablet 1.5 MG PO (20:56)
[2021-01-03] MEDS: MELATONIN 3 MG TABLET PO (20:57)
[2021-01-03] MEDS: QUEtiapine 25 MG Tablet PO (20:57)
[2021-01-04] MEDS: Bisacodyl 10 MG Suppository RC (04:22)
[2021-01-04] MEDS: Carbidopa/Levodopa 25/100 Tablet PO ×8 (04:23→18:37)
[2021-01-04] MEDS: Amantadine 100 MG Capsule PO ×2 (05:43→11:50)
[2021-01-04] MEDS: Ipratropium Bromide 0.06% NASAL SPRAY 2 SPRAY NASAL ×3 (05:44→22:17)
[2021-01-04] MEDS: Enoxaparin 40 MG/0.4 ML Syringe SC (05:44)
[2021-01-04] MEDS: Cholecalciferol (VIT D3) 25 MCG TABLET (1,000 UNITS) PO (08:01)
[2021-01-04] MEDS: Ferrous Sulfate 325 MG Tablet PO (08:01)
[2021-01-04] MEDS: Senna/Docusate Sodium 1 Tablet 2 TABLET PO ×2 (08:01→22:16)
[2021-01-04] MEDS: Famotidine 20 MG Tablet PO ×2 (08:01→22:16)
[2021-01-04] MEDS: Smz/Tmp Ds Tablet 2 TABLET PO ×2 (08:02→16:41)
[2021-01-04 08:13] VITALS: BP 109/70; PULSE 81; RESP 20; TEMP 36.9; O2SAT 95
--- NOTE | 2021-01-04 10:16 | PCM.PN.BLA ---
Progress Note Eder was seen on team rounds today. No family was present. Afebrile VSS - He is tilt negative today. Denies lightheadedness. Maintaining appropriate oxygen saturation on RA Oral intake is good. Still retaining urine - PVR yesterday was 333. UA yesterday with no pyuria and no bacteria seen. Discussed with nursing - Less jumpy last night but, slept better than the previous night. Eder tells me the problem sleeping started when he was diagnosed with PD. Bladder scan last night showed a full bladder but straight cath'd for only 75cc's. He sees his reflection in the window at night and thinks it is someone in his room so the blinds are being drawn at night. Reviewed the PT/OT/ST notes Medication list reviewed. No change in the PE. I suspect the restlessness may be due to urine retention and urgency. The bladder scanner on rehab was determined to be malfunctioning. We borrowed the one from TCU and he is definitely retaining urine. It is sometimes difficult to pass the catheter and I suspect he is having autonomic dysfunction due to PD. Assessment & Plan Assessment/Plan (1) Urine retention: (2) Hyponatremia: (3) Parkinson's disease: (4) Physical debility: PLAN: 1. Eder had been sleeping much better but, when we discontinued the Fung he became restless and was not sleeping well. Even with the decrease in the dose of the Elavil he continues to have urine retention. This may be due to PD and not to BPH. Today he is not orthostatic but, I am hesitant to increase the dose of the Flomax and possibly make him orthostatic which would increase the risk for falls. If he does not sleep well today and is restless will reinsert a Fung and see what happens at night. 2. Recheck Lab on 01/08/21. 3. Plan DC on 01/09 if all goes well. SW will refer for Passport services. Visit Charges Inpatient E&M: 97511 Subs Hosp L1
[2021-01-04 10:22] VITALS: BP 111/58; BP 114/59; BP 117/70; PULSE 100; PULSE 81; PULSE 87
--- NOTE | 2021-01-04 16:19 | CASEMGMT ---
Social Work IDT met with patient for Team meeting. Discussed patient's progress in therapy and nursing. Pt progressing well. Explained Shun ASHLEY insurance with NRD 01/05 and continued stay is not guaranteed. Pt requesting to DC home prior to Thanksgiving. IDT and pt agreeable to DC 01/09. Inquired about having siblings provide additional assistance for the transition home. Pt stated they could stop in frequently. Explained SW to follow up on Waiver application. Pt requesting [facility]. Provided [facility] list with quality and resource data. Pt agreeable to referral to [facility]. Referral made for PT/OT/ST/SN/CAMARA. Pt requesting FWW and shower chair. Referral made to [facility]. Pt to pharmacy picking technician DME after DC. Family to transport pt home. Contacted [facility] to follow up on Waiver application. CM stated they contacted pt on 01/01 to discuss AL Waiver and [employer] Waiver for community services and to complete an assessment. Pt stated he did not want to pursue the assessment at this time. SW explained pt did not relay that information to this worker, but agreed to services in Team. CM offered to complete verbal HomeCare Waiver application again with this worker and submit it again. SW completed. CM stated pt would get a call from either [employer] or [employer] to complete assessment within 10-12 days. Pt could agree or deny services at that time. Updated pt with above information. Pt expressed understanding. Plan: DC home alone 01/09, [facility] PT/OT/ST/SN/CAMARA, FWW, shower chair Joya Patino, [employer] WASHTUB WORKER
[2021-01-04] MEDS: Tamsulosin HCl 0.4 MG Capsule PO (16:41)
[2021-01-04 19:30] VITALS: BP 109/59; PULSE 90; RESP 16; TEMP 36.9; O2SAT 97
[2021-01-04] MEDS: MELATONIN 3 MG TABLET PO (22:16)
[2021-01-04] MEDS: QUEtiapine 25 MG Tablet PO (22:16)
[2021-01-04] MEDS: Pramipexole Di-HCl 1 MG Tablet 1.5 MG PO (22:16)
--- NOTE | 2021-01-04 22:54 | NURSING ---
pt voided 300cc of clear yellow urine. Pt then bladder scan for 404. Pt straight cath with coude but no urine came out. i put press down on bladder and was able to get 300cc out. Once pressure was off the stream would stop then once pressure was applied urine came out
[2021-01-05] MEDS: Carbidopa/Levodopa 25/100 Tablet PO ×8 (05:51→18:01)
[2021-01-05] MEDS: Amantadine 100 MG Capsule PO ×2 (05:52→12:14)
[2021-01-05] MEDS: Ipratropium Bromide 0.06% NASAL SPRAY 2 SPRAY NASAL ×3 (05:52→21:12)
[2021-01-05] MEDS: Enoxaparin 40 MG/0.4 ML Syringe SC (05:52)
[2021-01-05 06:00] VITALS: BP 102/61; BP 105/68; BP 110/67; PULSE 104; PULSE 86; PULSE 94
--- NOTE | 2021-01-05 06:01 | NURSING ---
pt voided 200 cc of clear yellow urine. bladder scan for 318
[2021-01-05 07:30] VITALS: RESP 18; TEMP 36.8; O2SAT 98
[2021-01-05] MEDS: Famotidine 20 MG Tablet PO ×2 (08:02→21:12)
[2021-01-05] MEDS: Ferrous Sulfate 325 MG Tablet PO (08:02)
[2021-01-05] MEDS: Smz/Tmp Ds Tablet 2 TABLET PO ×2 (08:02→16:29)
[2021-01-05] MEDS: Cholecalciferol (VIT D3) 25 MCG TABLET (1,000 UNITS) PO (08:03)
[2021-01-05] MEDS: Senna/Docusate Sodium 1 Tablet 2 TABLET PO (08:03)
[2021-01-05] MEDS: Polyethylene Glycol 3350 17 GM PACKET PO (08:03)
[2021-01-05] MEDS: Tamsulosin HCl 0.4 MG Capsule PO (16:30)
[2021-01-05] MEDS: MELATONIN 3 MG TABLET PO (21:12)
[2021-01-05] MEDS: QUEtiapine 25 MG Tablet PO (21:12)
[2021-01-05] MEDS: Pramipexole Di-HCl 1 MG Tablet 1.5 MG PO (21:12)
[2021-01-05 22:00] VITALS: BP 128/68; PULSE 82; RESP 18; TEMP 36.9; O2SAT 95
[2021-01-06] MEDS: Carbidopa/Levodopa 25/100 Tablet PO ×8 (05:04→18:30)
[2021-01-06 06:45] VITALS: BP 100/56; BP 105/62; BP 110/68; PULSE 78; PULSE 82; PULSE 88
[2021-01-06] MEDS: Enoxaparin 40 MG/0.4 ML Syringe SC (07:00)
[2021-01-06] MEDS: Amantadine 100 MG Capsule PO ×2 (07:00→11:58)
[2021-01-06] MEDS: Ipratropium Bromide 0.06% NASAL SPRAY 2 SPRAY NASAL ×2 (07:01→21:18)
[2021-01-06] MEDS: Polyethylene Glycol 3350 17 GM PACKET PO (08:19)
[2021-01-06] MEDS: Smz/Tmp Ds Tablet 2 TABLET PO ×2 (08:19→16:54)
[2021-01-06] MEDS: Ferrous Sulfate 325 MG Tablet PO (08:19)
[2021-01-06] MEDS: Senna/Docusate Sodium 1 Tablet 2 TABLET PO ×2 (08:19→21:18)
[2021-01-06] MEDS: Cholecalciferol (VIT D3) 25 MCG TABLET (1,000 UNITS) PO (08:19)
[2021-01-06] MEDS: Famotidine 20 MG Tablet PO ×2 (08:19→21:18)
[2021-01-06 08:30] VITALS: BP 122/78; PULSE 78; RESP 16; TEMP 36.6; O2SAT 96
[2021-01-06] MEDS: Tamsulosin HCl 0.4 MG Capsule PO (16:54)
[2021-01-06 19:22] VITALS: BP 130/76; PULSE 81; RESP 16; TEMP 36.7; O2SAT 98
[2021-01-06] MEDS: QUEtiapine 25 MG Tablet PO (21:17)
[2021-01-06] MEDS: Pramipexole Di-HCl 1 MG Tablet 1.5 MG PO (21:18)
[2021-01-06] MEDS: MELATONIN 3 MG TABLET PO (21:18)
[2021-01-07] MEDS: Carbidopa/Levodopa 25/100 Tablet PO ×8 (03:41→17:56)
[2021-01-07] MEDS: Enoxaparin 40 MG/0.4 ML Syringe SC (06:24)
[2021-01-07] MEDS: Ipratropium Bromide 0.06% NASAL SPRAY 2 SPRAY NASAL ×3 (06:24→20:01)
[2021-01-07] MEDS: Amantadine 100 MG Capsule PO ×2 (06:25→11:51)
[2021-01-07 08:05] VITALS: BP 131/74; PULSE 84; RESP 18; TEMP 36.6; O2SAT 98
[2021-01-07] MEDS: Senna/Docusate Sodium 1 Tablet 2 TABLET PO ×2 (08:09→20:01)
[2021-01-07] MEDS: Famotidine 20 MG Tablet PO ×2 (08:09→20:01)
[2021-01-07] MEDS: Cholecalciferol (VIT D3) 25 MCG TABLET (1,000 UNITS) PO (08:09)
[2021-01-07] MEDS: Ferrous Sulfate 325 MG Tablet PO (08:10)
[2021-01-07] MEDS: Smz/Tmp Ds Tablet 2 TABLET PO ×2 (08:10→16:25)
[2021-01-07] MEDS: Tamsulosin HCl 0.4 MG Capsule PO (16:25)
[2021-01-07] MEDS: QUEtiapine 25 MG Tablet PO (20:01)
[2021-01-07] MEDS: Pramipexole Di-HCl 1 MG Tablet 1.5 MG PO (20:01)
[2021-01-07] MEDS: MELATONIN 3 MG TABLET PO (20:01)
[2021-01-07 21:03] VITALS: BP 114/61; PULSE 83; RESP 16; TEMP 36.8; O2SAT 98
[2021-01-08] MEDS: Carbidopa/Levodopa 25/100 Tablet PO ×8 (04:13→18:14)
[2021-01-08] MEDS: Ipratropium Bromide 0.06% NASAL SPRAY 2 SPRAY NASAL ×3 (06:10→19:28)
[2021-01-08] MEDS: Enoxaparin 40 MG/0.4 ML Syringe SC (06:10)
[2021-01-08] MEDS: Amantadine 100 MG Capsule PO ×2 (06:11→12:11)
[2021-01-08 06:32] LABS: Erythrocyte Sedimentation Rate 36 mm/hr (0-20)
[2021-01-08 06:37] LABS: Absolute Lymphocyte Count 1.28 X10^3/uL (0.83-4.51); Basophil# 0.06 X10^3/uL; Basophil% 1.1 % (0-1); Eosinophil# 0.63 X10^3/uL; Eosinophils% 11.4 % (0-5); Hematocrit 38.7 % (40-54); Hemoglobin 12.4 g/dL (13.0-16.5); Lymphocyte # 1.28 X10^3/ul (0.83-4.51); Lymphocyte % 23.1 % (19-41); Mean Corpuscular Hgb 28.2 pg (27.0-32.0); Mean Platelet Vol. 8.8 fl (6.2-12.0); Monocyte# 0.53 X10^3/uL; Monocyte% 9.6 % (0-10); NRBC Flagged by Analyzer 0 % (0-5); Neutrophil # 2.96 X10^3/uL (2.7-7.7); Neutrophil % 53.4 % (47-70); Platelet Count 329 K/mm3 (150-450); RBC Distribution Width CV 17.5 % (11.6-14.6); RBC Distribution Width SD 56.8 fl (35.1-43.9); White Blood Count 5.5 K/mm3 (4.4-11.0)
[2021-01-08 06:50] LABS: Anion Gap 5 (5-15); BUN 15 mg/dL (7-18); BUN/Creat Ratio 17.2 RATIO (10-20); Chloride 100 mmol/L (98-107); Creatinine, Serum 0.87 mg/dL (0.70-1.30); EST Glomerular Filtration Rate 96 mL/min (>60); Est Glom Filt Rate - Afr Amer 116 mL/min (>60); Estimated Creatinine Clearance 72.92 ml/min; Glucose 98 mg/dL (74-106); Potassium 4.4 mmol/L (3.5-5.1); Sodium Level 132 mmol/L (136-145)
[2021-01-08 07:39] VITALS: BP 121/75; PULSE 88; RESP 14; TEMP 36.7; O2SAT 99
[2021-01-08] MEDS: Cholecalciferol (VIT D3) 25 MCG TABLET (1,000 UNITS) PO (08:05)
[2021-01-08] MEDS: Smz/Tmp Ds Tablet 2 TABLET PO ×2 (08:06→16:31)
[2021-01-08] MEDS: Senna/Docusate Sodium 1 Tablet 2 TABLET PO ×2 (08:06→21:05)
[2021-01-08] MEDS: Ferrous Sulfate 325 MG Tablet PO (08:06)
[2021-01-08] MEDS: Famotidine 20 MG Tablet PO ×2 (08:06→21:05)
[2021-01-08] MEDS: Polyethylene Glycol 3350 17 GM PACKET PO (08:06)
--- NOTE | 2021-01-08 10:14 | PCM.PN.BLA ---
Progress Note Afebrile VSS Maintaining appropriate oxygen saturation on RA Oral intake is good. Good urine output daily since the Fung catheter was reinserted for persistent urine retention despite decrease in Elavil dosage. Discussed with nursing - no problems that need addressed Reviewed the PT/OT/ST notes Medication list reviewed. All lab was personally reviewed. Hemoglobin is up to 12.4 from 11.4 at admission. White blood cell count is within normal limits. Platelets are also within normal limits. Eosinophils are increased at 11.4% which is up from 3% on 12/28/2020. Sed rate is now down to 36. Sodium is low at 132 but it is stable. Remainder of the BMP is unremarkable and the creatinine is stable at 0.87. No rash and no pruritus Ray has been sleeping much better since the Fung was inserted.........no longer very restlessness at night. Physical Exam Const alert and no apparent distress General Appearance: cooperative Resp normal respiratory effort, normal air movement and clear to auscultation bilaterally Cardio regular rate, regular rhythm and no gallops GI normal to inspection, nondistended, normoactive bowel sounds and soft to palpation Assessment & Plan Assessment/Plan (1) Autonomic dysfunction: PLAN: can not increase the Flomax because he gets symptomatic orthostasis. (2) Urine retention: PLAN: still requiring Fung despite tapering the Elavil (3) Parkinson's disease: PLAN: continue the current medications (4) Hyponatremia: PLAN: stable (5) Anemia: PLAN: improving (6) Physical debility: Visit Charges Inpatient E&M: 11400 Subs Hosp L2
[2021-01-08] MEDS: Tamsulosin HCl 0.4 MG Capsule PO (16:31)
[2021-01-08 19:19] LABS: CRP 6.07 mg/L (0.0-3.0)
[2021-01-08 19:31] VITALS: BP 127/79; PULSE 81; RESP 14; TEMP 36.8; O2SAT 98
[2021-01-08] MEDS: Pramipexole Di-HCl 1 MG Tablet 1.5 MG PO (21:05)
[2021-01-08] MEDS: QUEtiapine 25 MG Tablet PO (21:06)
[2021-01-08] MEDS: MELATONIN 3 MG TABLET PO (21:06)
[2021-01-09] MEDS: Carbidopa/Levodopa 25/100 Tablet PO ×6 (03:48→13:44)
[2021-01-09] MEDS: Magnesium Hydroxide 30 ML UDC PO (03:54)
[2021-01-09] MEDS: Amantadine 100 MG Capsule PO ×2 (05:53→12:09)
[2021-01-09] MEDS: Ipratropium Bromide 0.06% NASAL SPRAY 2 SPRAY NASAL ×2 (05:54→13:44)
[2021-01-09] MEDS: Enoxaparin 40 MG/0.4 ML Syringe SC (05:54)
[2021-01-09 07:30] VITALS: BP 125/75; PULSE 83; RESP 20; TEMP 36.6; O2SAT 99
[2021-01-09] MEDS: Ferrous Sulfate 325 MG Tablet PO (07:52)
[2021-01-09] MEDS: Smz/Tmp Ds Tablet 2 TABLET PO (07:52)
[2021-01-09] MEDS: Famotidine 20 MG Tablet PO (07:53)
[2021-01-09] MEDS: Cholecalciferol (VIT D3) 25 MCG TABLET (1,000 UNITS) PO (07:53)
[2021-01-09] MEDS: Senna/Docusate Sodium 1 Tablet 2 TABLET PO (07:53)
[2021-01-09] MEDS: Polyethylene Glycol 3350 17 GM PACKET PO (07:53)
--- NOTE | 2021-01-09 10:29 | PCM.DC ---
Discharge Instructions Diet Discharge Diet: No restrictions Activity Discharge Activity: May Not Drive and May Shower Weight Bearing Status: Full weight bearing Additional Activity Instructions:: Do the exercises given to you by the therapists at LEAST once a day Dressing / Incision Call your doctor if you observe: Fever of 101 or Higher, Inability to have a bowel movement, Shortness of breath, Dizziness, Fainting spells, Swelling in the ankles, Chest pain, Increased palpitations (irregular heartbeat), Calf discomfort, Uncontrolled pain and - (Increasing weakness, productive cough) Catheter: Fung to leg bag Follow Up Care Please Follow Up With: Dr Qiana Hale Test Results: Test results from this visit will be discussed in further detail at your follow-up appointment, if applicable. Pending Tests Upon Discharge: none Discharge Plan Admission Admit Date/Time: 12/17/20 15:11 Primary Reason for Your Visit: Debility due to prolonged hospital admission due to sepsis/PD Attending Provider: Lia Hernandez Instructions Additional Instructions / Restrictions: 1. You have done very well in therapy Ray and you are no longer needing an assistive device to walk. The thing you must ALWAYS keep in mind is SLOW DOWN. Take small bites and sips and alternate Bites and sips. Slow you gait down and this will help prevent loss of balance and falls. Be very careful going up and down steps. Do NOT carry a laundry basket up and down steps. Get a laundry bag you can put over your shoulders if you must do your own laundry. that way you can still hold onto the railing to improve your balance and prevent a fall. 2. You retain urine and that is why you have to keep that catheter in. When you retain urine it can lead to infections and to kidney failure. In you it also leads to agitation, insomnia, increased restlessness and hallucinations. Parkinson's disease patients can have hallucinations normally. We have started you on a low dose of a medication called Seroquel (quetiapine) to help prevent hallucinations. I have been weaning you off the amitriptyline (Elavil) which causes urine retention. This may improve your ability to urinate without a catheter but, Parkinson's can also cause urine retention. You started at 200 mg of amitriptyline at bedtime and you will be on 100 mg at discharge. Your family doctor should continue to taper this medication so that there is a possibility you will be able to urinate on your own and the catheter could be discontinued. Amitriptyline is an antidepressant and people with Parkinson's disease frequently become depressed. If you are having a problem with depression I would recommend starting a SSRI (selective serotonin reuptake inhibitor) to treat the depression. This drug I would choose is sertraline (Zoloft). Sertraline is least likely to interfere with your motor abilities. Your family doctor can start this medication if you have signs of depression. Signs of depression include irritability, fatigue, lack of motivation, decreased appetite, crying at things that would normally not bother you, etc. I am giving you a handout on symptoms of depression to read. 3. Parkinson's drugs interact with many other drugs and some tend to have a lot of side effects. Before taking any new drugs always talk to your neurologist or your primary care doctor to see if the drug is compatible with your other medications. This includes [id number] drugs. 4. It has been a pleasure meeting you Ray. I admire your attitude and motivation. You have been dealing with Parkinson's for a long time and you are still on the move and doing for yourself. Sometimes all of us need some help. The social media content specialist has arranged for you to get some home Health at discharge. [facility] to arrange for some additional help.....with laundry and grocery shopping and getting to doctor's appts and Meals on Wheels......please tell them when they call that you would like to have their services. I think if you do this you will continue to be able to live independently and by yourself. 5. Happy Holidays Ray. If you have any questions after you leave the rehab unit call me. Office: [phone] CEll: [phone] Discharge Orders/Prescriptions Prescriptions: New carbidopa-levodopa 25-100 mg Tablet See Rx Instructions .ROUTE .COMPLEX Qty: 240 RF: 0 quetiapine 25 mg Tablet 25 mg PO DAILY@2100 Qty: 30 RF: 0 sennosides-docusate sodium [Stool Softener-Stimulant Laxat] 8.6-50 mg Tablet 2 tab PO BID Qty: 120 RF: 0 sulfamethoxazole-trimethoprim 800-160 mg Tablet 2 tab PO BIDCM Qty: 120 RF: 0 amantadine HCl 100 mg Capsule 100 mg PO 06,12 Qty: 60 RF: 0 ipratropium bromide 42 mcg (0.06 %) [place],Non-Aerosol 2 spray NASAL TID Qty: 1 RF: 3 amitriptyline 50 mg tablet 100 mg PO DAILY Qty: 60 RF: 0 acetaminophen 325 mg capsule 650 mg PO Q4H PRN (Reason: fever or pain) Qty: 120 RF: 0 ascorbic acid (vitamin C) [Vitamin C] 500 mg tablet 500 mg PO DAILY Qty: 30 RF: 0 Continued polyethylene glycol 3350 [Miralax] 17 gram Powder In Packet 17 g PO DAILY Qty: 30 RF: 0 ropinirole 3 mg Tablet 6 mg PO QHS Qty: 60 RF: 0 melatonin 3 mg Tablet 3 mg PO QHS Qty: 30 RF: 0 famotidine 20 mg Tablet 20 mg PO BID Qty: 60 RF: 0 tamsulosin 0.4 mg Capsule 0.4 mg PO DAILY@1700 Qty: 30 RF: 0 ferrous sulfate 325 mg (65 mg iron) Tablet 325 mg PO DAILY Qty: 30 RF: 0 cholecalciferol (vitamin D3) [Vitamin D3] 25 mcg (1,000 unit) Tablet 25 mcg PO DAILY Qty: 30 RF: 0 Discontinued amantadine HCl 50 mg/5 mL Solution 100 mg PO BID RF: 0 ipratropium-albuterol [DuoNeb] 0.5 mg-3 mg(2.5 mg base)/3 mL Solution For Nebulization 3 ml INHALATION Q4H PRN (Reason: sob) RF: 0 acetaminophen 500 mg Tablet 1,000 mg PO Q6H PRN (Reason: Pain) RF: 0 rifampin 300 mg Capsule 300 mg PO BID RF: 0 hydrocodone-homatropine 5-1.5 mg Tablet 1 tab PO Q4H PRN (Reason: Cough) RF: 0 carbidopa-levodopa 25-100 mg Tablet 0.5 tab PO 4-12XD RF: 0 ondansetron [Zofran ODT] 4 mg Tablet,Disintegrating 4 mg PO Q8H PRN (Reason: Nausea) RF: 0 amitriptyline 100 mg Tablet 200 mg PO DAILY@1700 RF: 0 enoxaparin [Lovenox] 40 mg/0.4 mL Syringe 40 mg SUBCUT DAILY@0600 RF: 0 daptomycin 500 mg Recon Soln 500 mg IV DAILY@0600 RF: 0 sennosides-docusate sodium [Senna-S] 8.6-50 mg Tablet 1 tab-cap PO BID RF: 0 Disposition Disposition (needs filled in before D/C Order can be placed): Home Health Service
[2021-01-09 11:24] VITALS: BP 125/75; PULSE 83; RESP 18; TEMP 36.6; O2SAT 99
--- NOTE | 2021-01-09 14:34 | DS.PCM_ITS ---
Providers Date of Admission: 12/17/20 Date of Discharge: 01/09/21 Primary Care Physician: Dr. Piedra at [facility] Reason For Visit: DEBILITY Diagnosis Discharge Diagnosis (1) Physical debility: Status: Acute Code(s): R53.81 - Other malaise Plan: Will continue PT/OT at home with [facility] (2) Severe sepsis: Status: Resolved Code(s): A41.9 - Sepsis, unspecified organism; R65.20 - Severe sepsis without septic shock Plan: Initially due to MRSA sepsis due to infected R shoulder replacement. He is S/P explant of the joint. then spread to include a pelvic abscess followed by discitis and osteomyelitis of the lumbar spine. On BACTRIM DS 2 tabs BID now after finishing prolonged course of IV antibiotics. Following with Dr. Justo Hale for ID. (3) S/P excisional debridement: Code(s): Z98.890 - Other specified postprocedural states Plan: Of the R shoulder joint followed by explant of the joint and placement of an antibiotic spacer. 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 CT scan of the lumbar spine demonstrated erosive destruction of the endplates of L3-4, L4-5 and L5-S1. There was also erosions in the left sacral ala and the left ilium adjacent to the SI joint. There was a focal fluid collection along the anterior left margin of L5. He underwent irrigation/washout, excisional debridement of the L5 perivertebral abscess and L3-S1 posterior segmental pedicle screw?ken instrumentation, pelvic instrumentation and bilateral S2A1 pelvic screws on 11/06/2020. (7) Discitis: Code(s): M46.40 - Discitis, unspecified, site unspecified (8) Spinal surgery in prior 3 months: Code(s): Z98.890 - Other specified postprocedural states Plan: See above for description of the surgery done 11/06/20 (9) Sacral insufficiency fracture: Code(s): M84.48XA - Pathological fracture, other site, initial encounter for fracture (10) Urine retention: Status: Acute Code(s): R33.9 - Retention of urine, unspecified Plan: This may be multifactorial and due to high-dose amitriptyline in conjunction with BPH and possible autonomic dysfunction related to Parkinson's disease. (11) Hyponatremia: Status: Acute Code(s): E87.1 - Hypo-osmolality and hyponatremia Plan: mild,persistent. BM at discharge is 132 and it ranges from 132-134. (12) Anemia: Status: Acute Code(s): D64.9 - Anemia, unspecified Plan: Hemoglobin at discharge is 12.4 (13) Parkinson's disease: Code(s): G20 - Parkinson's disease (14) Delirium: Status: Resolved Code(s): R41.0 - Disorientation, unspecified (15) Chronic coughing: Code(s): R05.3 - Chronic cough Plan: Multifactorial, due to chronic aspiration(mostly when he gulps fluids and takes multiple bites before swallowing) and Post nasal drainage. Cough improved significantly with Atrovent Nasal [place] 2 sprays each nostril TID. (16) Restless legs: Status: Chronic Code(s): G25.81 - Restless legs syndrome (17) BPH (benign prostatic hyperplasia): Status: Chronic Code(s): N40.0 - Benign prostatic hyperplasia without lower urinary tract symptoms (18) Depression: Code(s): F32.A - Depression, unspecified Plan: Has been on 200 mg of amitriptyline which contributes significantly to urine retention in a 60-year-old male. The dosage has gradually been weaned to 100 mg at at bedtime and would continue weaning. A good option for treatment of anxiety/depression would be sertraline which is the least likely to contribute to motor disabilities. (19) Anxiety: Code(s): F41.9 - Anxiety disorder, unspecified (20) GERD (gastroesophageal reflux disease): Code(s): K21.9 - Gastro-esophageal reflux disease without esophagitis Plan: Continue Pepcid. Medications at Discharge Home Medications acetaminophen 650 mg PO Q4H PRN #120 cap 01/09/21 amantadine HCl 100 mg PO 06,12 #60 cap 01/09/21 amitriptyline 100 mg PO DAILY #60 tab 01/09/21 ascorbic acid (vitamin C) [Vitamin C] 500 mg PO DAILY #30 tab 01/09/21 carbidopa-levodopa See Rx Instructions .ROUTE .COMPLEX #240 tab 01/09/21 cholecalciferol (vitamin D3) [Vitamin D3] 25 mcg PO DAILY #30 tab 01/09/21 famotidine 20 mg PO BID #60 tab 01/09/21 ferrous sulfate 325 mg PO DAILY #30 tab 01/09/21 ipratropium bromide 2 spray NASAL TID #1 bottle 01/09/21 melatonin 3 mg PO QHS #30 tab 01/09/21 polyethylene glycol 3350 [Miralax] 17 g PO DAILY #30 dose 01/09/21 quetiapine 25 mg PO DAILY@2100 #30 tab 01/09/21 ropinirole 6 mg PO QHS #60 tab 01/09/21 sennosides-docusate sodium [Stool Softener-Stimulant Laxat] 2 tab PO BID #120 tab 01/09/21 sulfamethoxazole-trimethoprim 2 tab PO BIDCM #120 tab 01/09/21 tamsulosin 0.4 mg PO DAILY@1700 #30 cap 01/09/21 Hospital Course Operations None Procedures - (MBS: Patient with oroharyn dysphagia characterized by slow mastication, poor bolus formation and decreased anterior-posterior oral transit resulting in oral residues. Pt. presents with pharyngeal phase dysphagia characterized by decreased laryngeal elevation, decreased anterior hyoid excursion, d) Summary of Care Provided Minutes Spent on Discharge: 50 Hospital Course: SOFIE MILLER, is a 60 YO M with a PMH of Parkinson's disease, anxiety/depression, GERD, osteoarthritis, hx of placement of a deep brain stimulator and R total shoulder replacement who was transferred to [facility] on 10/03/20 from an OSH for severe sepsis with metabolic encephalo vero secondary to periprosthetic infection of the R shoulder. Apparently he was found down in his home and also had ARF and rhabdomyolysis. Cultures were + for MRSA. The hardware was removed and a antibiotic spacer was placed. Work-up at that admission also showed an abscess anterior to the Left SI joint and bilateral sacral insufficiency fractures. Aspiration of the abscess was attempted but, failed. DANO during that admission showed no significant valvular abnormalities and no vegetations. The EF was estimated at 71%. Bilateral lower extremity venous duplex on 823 was negative for acute deep or superficial venous thrombosis. Bilateral upper extremity venous duplex, also on 10/09/2020, showed acute superficial vein thrombosis noted in the left cephalic vein. There was no evidence of acute deep or superficial venous thrombosis in the veins of the right upper extremity. He was transferred to [facility] for IV antibiotics including Daptomycin and Ceftaroline. On 11/02/20 he was sent back to the ED at [facility] with a c/o increasing back pain. A CT scan of the lumbar spine with co ntrast demonstrated erosive destruction of the endplates of L3-4, L4-5 and L5- S1. Additionally there appeared to be erosion involving the left sacral ala and the left ilium adjacent to the SI joint. There was a focal fluid collection along the anterior left margin of L5 highly suggestive of a perivertebral abscess. He underwent irrigation/washout, excisional debridement of the L5 kamlesh-vertebral abscess and L3-S1 posterior segmental pedicle screw-ken instrumentation, pelvic instrumentation and bilateral S2A1 pelvic screws on 11/06/2020. He was transferred back to [facility]. At the time of presentation he was unable to walk. He was evaluated by PT/OT and a recommendation for acute inpt rehab was made. He lives by himself and is single. He was transferred to [facility] acute inpatient rehab on 12/17/20 for 3 hours of therapy daily to restore function at or near his level of function prior to sepsis. Evan had urine retention at admission to rehab. A Fung was inserted. A UA had 0 RBCs and 0 WBCs per high-power field with no bacteria. He was on high dose Elavil at 200 mg daily and I suspected this may be contributing. We started weaning the Elavil to see if retention would improve. The dose was decreased to 150 mg and thereafter decreased by 25 mg every 5-7 days. Urine retention persisted. Could not increase the Flomax due to orthostatic hypotension. He was discharged with a Fung/leg bag and will follow up with urology. The retention may be due to PD but I suspect it is likely multifactorial. He is known to have autonomic dysfunction due to advanced PD. Evan had no resurgence of depression with tapering the Elavil. to maximize his chance of having the Fung discontinued I would consider tapering completely off the Elavil and starting Sertraline for tx of anxiety/depression. It is the least likely to contribute to movement disorder. Evan was coughing a lot at presentation to rehab and the cough improved significantly with Atrovent nasal spray. The cough is worse with eating and drinking, michel when he gulps food and chugs fluids. He has trouble with short term memory and can no remember to sip and take small bites. A modified barium swallow was done and the impressions were: Pt. presents with oral phase dysphagia characterized by slow mastication, poor bolus formation and decreased anterior-posterior oral transit resulting in oral residues. Pt. presents with pharyngeal phase dysphagia characterized by decreased laryngeal elevation, decreased anterior hyoid excursion, decreased epiglottic deflection and decreased tongue based retraction resulting in pharyngeal residues, decreased closure of the laryngeal vestibule and mild trace penetration with thin liquids via sequential and straw sips. Pt. was unable to clear the residuals in the valleculae and along pharyngeal wall. No aspiration was observed during the study and penetration was ejected. He was placed on a regular texture diet with thin liquids and instructed to sit upright while eating, take small sips and small bites and to alternate bites and sips. Unfortunately he is impulsive and can not recall these instructions. His cough was very mild at [place] and primarily occurs with eating. Prior to discharge Evan was able to ambulate 652 feet with a front wheeled walker at standby assist. He walked off the unit and down to the gift shop and was able to ambulate 350 feet at contact-guard assist without an assistive device and only 1 loss of balance noted. The MANAGER [employer]MISTR[employer] had to assist him to maintain his balance at that time. He was standby assist for transfers from various surfaces. He was able to do 15 sit to stands in 30 seconds. He was able to do a curb step with the FWW at [facility]. He could also ascend/descend 5 steps of various heights with no handrails. Evan has a lot of steps at home. He has lived in the same house for all his live and feels he can manage at home yet and he is not ready to consider transitioning to assisted living or to a 1 floor set up. He was able to complete all ADLs at standby assist or supervision/set up. Home health care was set up by the social sciences chair prior to discharge and he will receive PT/OT/ST/SN/[facility]. DME included a front wheeled walker and shower chair. Evan was discharged on 01/09. Prior to DC the nurse instructed Evan and his brother who came to pick him up to transport home on Fung care. SN will educate further as OP if needed. He will follow up with orthopedics, ID, PCP and the neurologist who manages his PD. Physical Exam Const alert, oriented x3 and no apparent distress Constitutional Narrative: General Appearance: cooperative, comfortable, well kempt and well hydrated Nutritional Appearance: underweight HEENT normocephalic, moist oral mucous membranes and oropharynx normal Eyes PERRL, EOMs intact bilaterally, conjunctivae normal and no scleral icterus Neck No nuchal rigidity, no lymphadenopathy, supple, no JVD and no carotid bruits General: normal visual inspection and trachea midline Chest Chest: symmetrical chest wall rise Resp normal respiratory effort, normal air movement, No no use of accessory muscles and clear to auscultation bilaterally Resp Narrative: Excellent air exchange throughout. Effort and Inspection: able to speak in complete sentences Cardio regular rate, regular rhythm, S1 normal heart sound, S2 normal heart sound, no murmurs, no rub and no gallops Cardio Narrative: No ectopy GI normal to inspection, nondistended, normoactive bowel sounds, soft to palpation and non-tender GI Narrative: Last BM was yesterday and we increased the senna to 2 tabs BID due to constipation Narrative: Fung was inserted due to persistent urine retention and this I suspect is related to Elavil 200 mg at night. Back/Spine Back/Spine Narrative: Incision is intact and healing well with no erythema and no DC. Extremity normal capillary refill, no clubbing, cyanosis or edema, no calf tenderness and no pedal edema Skin Skin Narrative: Denies pruritus General Skin Exam: no breakdown Rashes: no rashes Wound Narrative: The incision is clean, dry, intact. There is no erythema, dehiscence, purulent discharge. Hair: general thinning Neuro oriented x3, CN's II-XII intact bilaterally, moves all extremities, no focal motor deficits and no sensory deficits noted Neuro Narrative: Tremors on the right worse than on the left. Still somewhat impulsive. Ambulating with a FWW at A. Able to ambulate without an AD but needs CGA because he does lose his balance at times. His is still impulsive and he does everything (eating, drinking, walking) very fast.....I suspect he would be more stable if we could get him to slow down but, he says this is the way he does things and he will be fine. He also rode a bike to the grocery store prior to the recent prolonged hospitalization. Speech: Negative for expressive aphasia or receptive aphasia Psych mental status grossly normal, thought process normal, cooperative, affect normal, speech normal, activity/motor behavior normal, denies hallucinations, denies homicidal ideation and denies suicidal ideation Psych Narrative: He is having hallucinations and delusions only at night. Not sleeping well. Appearance: grossly normal, appropriate and well kempt Attitude: calm Activity / Motor Behavior: appropriate eye contact and restless; Negative for psychomotor agitation or psychomotor slowing Speech: normal speech Mood & Affect: depressed and tearful Attention / Concentration: attention grossly intact Memory / Cognition: memory grossly intact Weight / BMI Weight Weight: 122 lb 12.76 oz Body Mass Index (BMI) 18.9 ABG / Lab / Microbiology Data Result Diagrams: 01/08/21 05:45 01/08/21 05:45 Laboratory: Laboratory Results - last 24 hr 01/08/21 18:15: C-React Prot Ext Range 6.07 H Microbiology: Microbiology 12/28/20 15:24 Blood Culture (Wb) - Anticubital Right Bacteria Detection ( PCR) - Final Staphylococcus epidermidis 12/28/20 15:24 Blood Culture (Wb) - Anticubital Right Blood Culture - Final Staphylococcus epidermidis 12/28/20 15:29 Blood Culture (Wb) - Anticubital Left Blood Culture - Final No growth in 5 days. 12/28/20 09:15 Urine Catheter - Catheter Urine Culture - Final Culture exhibits no growth. D/C Instructions Discharge Diet: No restrictions Weight Bearing Status: Full weight bearing Additional Activity Instructions: Do the exercises given to you by the therapists at LEAST once a day Call your doctor if you observe: Fever of 101 or Higher, Inability to have a bowel movement, Shortness of breath, Dizziness, Fainting spells, Swelling in the ankles, Chest pain, Increased palpitations (irregular heartbeat), Calf discomfort, Uncontrolled pain and - (Increasing weakness, productive cough) Catheter: Fung to leg bag Pending Tests Upon Discharge: none Please Follow Up With: Dr Qiana Hale Meaningful Use Info Meaningful Use Diagnoses (Choose all that apply): None applicable Discharge Plan Admission Admit Date/Time: 12/17/20 15:11 Primary Reason for Your Visit: Debility due to prolonged hospital admission due to sepsis/PD Attending Provider: Lia Hernandez Instructions Additional Instructions / Restrictions: 1. You have done very well in therapy Ray and you are no longer needing an assistive device to walk. The thing you must ALWAYS keep in mind is SLOW DOWN. Take small bites and sips and alternate Bites and sips. Slow you gait down and this will help prevent loss of balance and falls. Be very careful going up and down steps. Do NOT carry a laundry basket up and down steps. Get a laundry bag you can put over your shoulders if you must do your own laundry. that way you can still hold onto the railing to improve your balance and prevent a fall. 2. You retain urine and that is why you have to keep that catheter in. When you retain urine it can lead to infections and to kidney failure. In you it also leads to agitation, insomnia, increased restlessness and hallucinations. Parkinson's disease patients can have hallucinations normally. We have started you on a low dose of a medication called Seroquel (quetiapine) to help prevent hallucinations. I have been weaning you off the amitriptyline (Elavil) which causes urine retention. This may improve your ability to urinate without a catheter but, Parkinson's can also cause urine retention. You started at 200 mg of amitriptyline at bedtime and you will be on 100 mg at discharge. Your family doctor should continue to taper this medication so that there is a possibility you will be able to urinate on your own and the catheter could be discontinued. Amitriptyline is an antidepressant and people with Parkinson's disease frequently become depressed. If you are having a problem with depression I would recommend starting a SSRI (selective serotonin reuptake inhibitor) to treat the depression. This drug I would choose is sertraline (Zoloft). Sertraline is least likely to interfere with your motor abilities. Your family doctor can start this medication if you have signs of depression. Signs of depression include irritability, fatigue, lack of motivation, decreased appetite, crying at things that would normally not bother you, etc. I am giving you a handout on symptoms of depression to read. 3. Parkinson's drugs interact with many other drugs and some tend to have a lot of side effects. Before taking any new drugs always talk to your neurologist or your primary care doctor to see if the drug is compatible with your other medications. This includes dbmx-tta-xjzucdc drugs. 4. It has been a pleasure meeting you Ray. I admire your attitude and motivation. You have been dealing with Parkinson's for a long time and you are still on the move and doing for yourself. Sometimes all of us need some help. The social sciences chair has arranged for you to get some home Health at discharge. Someone from [facility] will be contacting you to arrange for some additional help.....with laundry and grocery shopping and getting to doctor's appts and Meals on Wheels......please tell them when they call that you would like to have their services. I think if you do this you will continue to be able to live independently and by yourself. 5. Happy Holidays Ray. If you have any questions after you leave the rehab unit call me. Office: [phone] CEll: [phone] Discharge Orders/Prescriptions Prescriptions: New carbidopa-levodopa 25-100 mg Tablet See Rx Instructions .ROUTE .COMPLEX Qty: 240 RF: 0 quetiapine 25 mg Tablet 25 mg PO DAILY@2100 Qty: 30 RF: 0 sennosides-docusate sodium [Stool Softener-Stimulant Laxat] 8.6-50 mg Tablet 2 tab PO BID Qty: 120 RF: 0 sulfamethoxazole-trimethoprim 800-160 mg Tablet 2 tab PO BIDCM Qty: 120 RF: 0 amantadine HCl 100 mg Capsule 100 mg PO 06,12 Qty: 60 RF: 0 ipratropium bromide 42 mcg (0.06 %) [place],Non-Aerosol 2 spray NASAL TID Qty: 1 RF: 3 amitriptyline 50 mg tablet 100 mg PO DAILY Qty: 60 RF: 0 acetaminophen 325 mg capsule 650 mg PO Q4H PRN (Reason: fever or pain) Qty: 120 RF: 0 ascorbic acid (vitamin C) [Vitamin C] 500 mg tablet 500 mg PO DAILY Qty: 30 RF: 0 Continued polyethylene glycol 3350 [Miralax] 17 gram Powder In Packet 17 g PO DAILY Qty: 30 RF: 0 ropinirole 3 mg Tablet 6 mg PO QHS Qty: 60 RF: 0 melatonin 3 mg Tablet 3 mg PO QHS Qty: 30 RF: 0 famotidine 20 mg Tablet 20 mg PO BID Qty: 60 RF: 0 tamsulosin 0.4 mg Capsule 0.4 mg PO DAILY@1700 Qty: 30 RF: 0 ferrous sulfate 325 mg (65 mg iron) Tablet 325 mg PO DAILY Qty: 30 RF: 0 cholecalciferol (vitamin D3) [Vitamin D3] 25 mcg (1,000 unit) Tablet 25 mcg PO DAILY Qty: 30 RF: 0 Discontinued amantadine HCl 50 mg/5 mL Solution 100 mg PO BID RF: 0 ipratropium-albuterol [DuoNeb] 0.5 mg-3 mg(2.5 mg base)/3 mL Solution For Nebulization 3 ml INHALATION Q4H PRN (Reason: sob) RF: 0 acetaminophen 500 mg Tablet 1,000 mg PO Q6H PRN (Reason: Pain) RF: 0 rifampin 300 mg Capsule 300 mg PO BID RF: 0 hydrocodone-homatropine 5-1.5 mg Tablet 1 tab PO Q4H PRN (Reason: Cough) RF: 0 carbidopa-levodopa 25-100 mg Tablet 0.5 tab PO 4-12XD RF: 0 ondansetron [Zofran ODT] 4 mg Tablet,Disintegrating 4 mg PO Q8H PRN (Reason: Nausea) RF: 0 amitriptyline 100 mg Tablet 200 mg PO DAILY@1700 RF: 0 enoxaparin [Lovenox] 40 mg/0.4 mL Syringe 40 mg SUBCUT DAILY@0600 RF: 0 daptomycin 500 mg Recon Soln 500 mg IV DAILY@0600 RF: 0 sennosides-docusate sodium [Senna-S] 8.6-50 mg Tablet 1 tab-cap PO BID RF: 0 Disposition Disposition (needs filled in before D/C Order can be placed): Home Health Service Charges/Coding Visit Charges Inpatient E&M: 17772 Disch Hosp
--- NOTE | 2021-01-09 15:45 | NURSING ---
discharged home with family. discharge instructions, medications, appointments, and Fung care reviewed with pt and family. denies question and concerns
== END 2021-01-09 14:30 | disposition home health service (06) | DRG 344 ==
PROVIDERS: Hospitalist; Admitting Provider Internal Medicine; Visit Provider Internal Medicine
DX: M46.26 Osteomyelitis of vertebra, lumbar region (principal); E87.1 Hypo-osmolality and hyponatremia; G20 Parkinson's disease; K21.9 Gastro-esophageal reflux disease without esophagitis; M19.90 Unspecified osteoarthritis, unspecified site; F41.9 Anxiety disorder, unspecified; G25.81 Restless legs syndrome; D64.9 Anemia, unspecified; M46.46 Discitis, unspecified, lumbar region; R13.13 Dysphagia, pharyngeal phase; Z23 Encounter for immunization; R33.8 Other retention of urine; F32.A Depression, unspecified; M84.48XD Pathological fracture, other site, subsequent encounter for fracture with routine healing; N40.1 Benign prostatic hyperplasia with lower urinary tract symptoms; Z79.899 Other long term (current) drug therapy; Z86.14 Personal history of Methicillin resistant Staphylococcus aureus infection; Z96.611 Presence of right artificial shoulder joint
CPT/HCPCS: 0064A; 36415; 71045; 74230; 80048; 80053; 81001; 83735; 84100; 85025; 85027; 85652; 86140; 87040; 87086; 87149; 91301; 92507; 92526; 92610; 92611; 97110; 97112; 97116; 97162; 97166; 97530; 97535; 97802; 99251; J0878; 90686; A4216; G0463; J3490